=== PATIENT | female | born 1955 | race Caucasian/White ===

== ENCOUNTER → 2017-09-11 | Outpatient (CLI) | payer BC | LOC: M WUC 19:05 | DX: R05 Cough (principal); I51.7 Cardiomegaly ==

== ENCOUNTER → 2020-07-27 | Outpatient (CLI) | payer MEDICARE ==
--- NOTE | 2020-07-27 17:01 | REP ---
INDICATION: COPD WITH EXACERBATION. COMPARISON: Comparison chest x-ray September 11, 2017. TECHNIQUE: Two views.. FINDINGS: The lungs are hyperinflated but free of infiltrate. Pleural angles are sharp. The heart is moderately enlarged. Cardiothoracic ratio is 58.5% today. This is unchanged. Pulmonary vasculature is cephalized. There is no evidence of pleural effusion or pulmonary edema. No acute bony abnormality. IMPRESSION: Hyperinflation consistent with COPD. Moderate cardiomegaly. Cephalization of the pulmonary vasculature.. <Electronically signed by Abdulkadir Bonner > 07/27/20 [id number]
== END ==
LOC: M WUC 15:26
PROVIDERS: ATTEND Family Medicine
DX: J44.1 Chronic obstructive pulmonary disease with (acute) exacerbation (principal); I51.7 Cardiomegaly

== ENCOUNTER → 2020-10-27 | Outpatient (CLI) | payer MEDICARE ==
[2020-10-27 13:18] LABS: BLOOD UREA NITROGEN 13 MG/DL (7-18); CALCIUM LEVEL 9.2 MG/DL (8.8-10.2); CARBON DIOXIDE LEVEL 32 MEQ/L (21-32); CHLORIDE LEVEL 100 MEQ/L (98-107); CREATININE FOR GFR 0.61 MG/DL (0.55-1.30); GLOMERULAR FILTRATION RATE > 60.0 (>45); GLUCOSE, FASTING 77 MG/DL (70-100); POTASSIUM SERUM 5.3 MEQ/L (3.5-5.1); SODIUM LEVEL 136 MEQ/L (136-145)
== END ==
LOC: M WUC 09:17
PROVIDERS: ATTEND Nurse Practitioner Family
DX: E87.5 Hyperkalemia (principal)

== ENCOUNTER → 2021-02-01 | Outpatient (CLI) | payer MEDICARE ==
--- NOTE | 2021-02-06 13:11 | REP ---
INDICATION: ABNORMAL FINDING OF LUNG FIELD COMPARISON: Comparison with outside examination dated 10/09/2018 made available TECHNIQUE: Axial noncontrast images from the thoracic inlet to the upper abdomen with coronal and sagittal reformations. This CT examination was performed using the following dose reduction techniques: Automated exposure control, adjustment of mA and/or kv according to the patient's size, and use of iterative reconstruction technique. FINDINGS: The bilateral lung simmons are well aerated and the previously noted partial collapse/atelectasis involving the lingula and anterior left lower lobe have essentially resolved. Minimal residual chronic lingular fibroatelectatic changes are now noted. No acute consolidation, suspicious nodule or mass. No effusion. No pneumothorax. Tracheobronchial tree is patent. Mediastinum demonstrates cardiomegaly along with significant atherosclerotic changes to the thoracic aorta and coronary arteries similar to prior examination. No aortic aneurysm. Mildly prominent mediastinal lymph nodes are again identified and unchanged. Limited upper abdomen demonstrates small hiatal hernia at the gastroesophageal junction along with cholelithiasis and normal bilateral adrenal glands. IMPRESSION: 1. Mild chronic pulmonary parenchymal changes. Previously noted lingular and left lower lobe atelectasis have resolved. 2. Stable appearance to the mediastinal lymph nodes likely nonspecific and chronic. 3. No acute mediastinal or pleuroparenchymal process appreciated. 4. Nonacute findings as above. <Electronically signed by Casper Krishnan > 02/06/21 [id number]
== END ==
LOC: M PLAIMG 15:25
PROVIDERS: ATTEND Internal Medicine Pulmonary Disease
DX: R91.8 Other nonspecific abnormal finding of lung field (principal)

== ENCOUNTER 2022-09-11 16:05 | Inpatient (IN) | payer MEDICARE ==
[~2022-09-11] VITALS: Ht 152.4 cm; Wt 70.0 kg
[2022-09-11 17:14] LABS: HEMATOCRIT 52.2 % (36.0-47.0); HEMOGLOBIN 16.8 g/dl (12.0-15.5); MEAN CORPUSCULAR HEMOGLOBIN 29.9 pg (27.0-33.0); MEAN CORPUSCULAR HGB CONC 32.2 g/dl (32.0-36.5); MEAN CORPUSCULAR VOLUME 92.9 fl (80.0-96.0); PLATELET COUNT, AUTOMATED 339 10^3/uL (150-450); RED BLOOD COUNT 5.62 10^6/uL (4.00-5.40)
[2022-09-11 17:15] LABS: WHITE BLOOD COUNT 33.3 10^3/uL (4.0-10.0)
[2022-09-11 17:32] LABS: LIPASE 15 U/L (12-53)
[2022-09-11 17:34] LABS: ALBUMIN 2.5 G/DL (3.2-5.2); ALKALINE PHOSPHATASE 138 U/L (46-116); ALT/SGPT 17 U/L (7.0-40); AST/SGOT 25 U/L (<34); BILIRUBIN,DIRECT 0.2 MG/DL (<0.4); BILIRUBIN,TOTAL 0.4 MG/DL (0.3-1.2); BLOOD UREA NITROGEN 26 MG/DL (9-23); CALCIUM LEVEL 9.3 MG/DL (8.3-10.6); CARBON DIOXIDE LEVEL 34 MMOL/L (20-31); CHLORIDE LEVEL 94 MMOL/L (98-107); CREATININE FOR GFR 0.76 MG/DL (0.55-1.30); GLOMERULAR FILTRATION RATE > 60.0 (>45); GLUCOSE, FASTING 93 MG/DL (74-106); POTASSIUM SERUM 4.6 MMOL/L (3.5-5.1); SODIUM LEVEL 131 MMOL/L (136-145); TOTAL PROTEIN 5.7 G/DL (5.7-8.2)
[2022-09-11] MEDS ORDERED: CIPROFLOXACIN 400 MG in IV 1 EA IV ONE (18:35)
[2022-09-11] MEDS ORDERED: KETOROLAC 30 MG/ML 1ML VIAL IV ONE (18:35)
[2022-09-11] MEDS ORDERED: NS 1,880 ML in IV 1 EA IV ONE (18:35)
[2022-09-11] MEDS ORDERED: ONDANSETRON 4MG 2ML VIAL IV ONE (18:35)
[2022-09-11] MEDS ORDERED: metroNIDAZOLE 500 MG in IV 1 EA IV ONE (18:35)
[2022-09-11] MEDS ORDERED: ISOVUE-370 76% 100ML VIAL As Ordered ONE (18:50)
[2022-09-11 19:31] LABS: RSV AMPLIFICATION NEGATIVE (NEGATIVE)
[2022-09-11] MEDS ORDERED: PRAVASTATIN 10 MG TAB PO SCH (21:00)
[2022-09-11] MEDS ORDERED: CARVedilol 6.25 MG TAB PO SCH (21:00)
[2022-09-11 21:22] LABS: BASO # 0.2 10^3/uL (0.0-0.2); BASO % 0.6 % (0.0-1.0); EOS % 0.1 % (0.0-3.0); LYMPH # 1.7 10^3/uL (1.5-5.0); LYMPH % 5.1 % (24.0-44.0); MONO % 8.8 % (2.0-8.0); NEUTROPHILS # 27.8 10^3/uL (1.5-8.5); NEUTROPHILS % 84.2 % (36.0-66.0)
[2022-09-11 21:23] LABS: MONO # 2.9 10^3/uL (0.0-0.8)
[2022-09-11] MEDS ORDERED: LR 1,000 ML IV SCH (22:00)
[2022-09-11] MEDS ORDERED: NICO14DI6 TD (22:55)
[2022-09-11] MEDS ORDERED: FLUT22IN INH (22:55)
[2022-09-11] MEDS ORDERED: PRAV10TA4 PO (22:55)
[2022-09-11] MEDS ORDERED: PANT40TA29 PO (22:55)
[2022-09-11] MEDS ORDERED: CARV6.25 PO (23:00)
[2022-09-11] MEDS ORDERED: LEVA45AE INH (23:00)
[2022-09-11] MEDS ORDERED: ALPR0.25 PO (23:00)
[2022-09-11] MEDS ORDERED: HOME MED LIST COMPLETE! XX SCH (23:00)
[2022-09-11] MEDS ORDERED: TRAM50TA2 PO (23:00)
[2022-09-11] MEDS ORDERED: ACET650T61 PO (23:00)
[2022-09-11] MEDS ORDERED: TRIA1CR80 TOP (23:00)
[2022-09-11] MEDS ORDERED: FURO20TA2 PO (23:00)
[2022-09-11] MEDS ORDERED: MUCI600T31 PO (23:00)
[2022-09-11] MEDS ORDERED: ZYRT10TA12 PO (23:00)
[2022-09-11] MEDS ORDERED: STIO1AER INH (23:00)
[2022-09-11] MEDS ORDERED: VITMTA PO (23:00)
[2022-09-11] MEDS ORDERED: LEXA1TAB PO (23:00)
[2022-09-11] MEDS ORDERED: traMADol 50 MG TAB PO PRN (23:15)
[2022-09-11] MEDS ORDERED: CETIRIZINE (ZyrTEC) 10 MG TAB PO PRN (23:15)
[2022-09-11] MEDS ORDERED: ACETAMINOPHEN 650MG ER TAB (TYLENOL ARTHRITIS) PO PRN (23:15)
[2022-09-11] MEDS ORDERED: guaiFENesin ER 600 MG TAB PO PRN (23:15)
[2022-09-12] MEDS ORDERED: ACETAMINOPHEN 650MG SUPP PR ONE (00:30)
[2022-09-12] MEDS ORDERED: HYDROMORPHONE HCL 0.5 MG/ 0.5 ML SYRINGE IV PRN (00:45)
[2022-09-12] MEDS ORDERED: ALBUTEROL SULFATE 2.5MG/0.5ML INH NEB SOLN NEB PRN (01:20)
[2022-09-12 02:00] VITALS: BP 112/64
[2022-09-12] MEDS: COMBIVENT RESPIMAT 100-20MCG INHALER 4GM INH SCH ×4 (02:00→20:00)
[2022-09-12 04:00] VITALS: BP 92/52
[2022-09-12 05:39] LABS: BASO # 0.1 10^3/uL (0.0-0.2); BASO % 0.3 % (0.0-1.0); EOS # 0.1 10^3/uL (0.0-0.5); EOS % 0.2 % (0.0-3.0); HEMATOCRIT 43.5 % (36.0-47.0); LYMPH # 1.9 10^3/uL (1.5-5.0); LYMPH % 7.2 % (24.0-44.0); MEAN CORPUSCULAR HEMOGLOBIN 30.1 pg (27.0-33.0); MEAN CORPUSCULAR HGB CONC 32.2 g/dl (32.0-36.5); MEAN CORPUSCULAR VOLUME 93.5 fl (80.0-96.0); MONO % 11.5 % (2.0-8.0); NEUTROPHILS # 21.5 10^3/uL (1.5-8.5); NEUTROPHILS % 79.8 % (36.0-66.0); PLATELET COUNT, AUTOMATED 274 10^3/uL (150-450); RED BLOOD COUNT 4.65 10^6/uL (4.00-5.40); WHITE BLOOD COUNT 26.9 10^3/uL (4.0-10.0)
[2022-09-12 06:07] LABS: URIC ACID 6.9 MG/DL (3.1-7.8)
[2022-09-12 06:10] LABS: BLOOD UREA NITROGEN 25 MG/DL (9-23); CALCIUM LEVEL 8.2 MG/DL (8.3-10.6); CARBON DIOXIDE LEVEL 31 MMOL/L (20-31); CHLORIDE LEVEL 97 MMOL/L (98-107); CREATININE FOR GFR 0.66 MG/DL (0.55-1.30); GLOMERULAR FILTRATION RATE > 60.0 (>45); GLUCOSE, FASTING 69 MG/DL (74-106); MAGNESIUM LEVEL 1.5 MG/DL (1.8-2.4); POTASSIUM SERUM 4.1 MMOL/L (3.5-5.1); SODIUM LEVEL 134 MMOL/L (136-145)
[2022-09-12 06:33] LABS: MONO # 3.1 10^3/uL (0.0-0.8)
[2022-09-12] MEDS: SUCRALFATE SUSP 1GM/10ML UD PO SCH ×4 (07:30→20:45)
[2022-09-12] MEDS ORDERED: NS 1,000 ML IV ONE (08:00)
[2022-09-12] MEDS ORDERED: MAG SULF 1GM/100ML (MAG RUN) 1 GM in IV 1 EA IV ONE (08:00)
[2022-09-12] MEDS: FLUTICASONE HFA 220 MCG 12 GM INHALER (FLOVENT) INH SCH ×3 (08:00→20:19)
[2022-09-12 08:14] VITALS: BP 112/76
[2022-09-12] MEDS ORDERED: FUROSEMIDE 20 MG TAB PO SCH (09:00)
[2022-09-12] MEDS ORDERED: MULTIVITAMINS/MINERALS THERAP 1 TAB PO SCH (09:00)
[2022-09-12] MEDS ORDERED: PANTOPRAZOLE 40MG TAB (PROTONIX) PO SCH (09:00)
[2022-09-12] MEDS ORDERED: metroNIDAZOLE 500 MG in IV 1 EA IV SCH (09:00)
[2022-09-12] MEDS ORDERED: ESCITALOPRAM OXALATE 10 MG TAB (LEXAPRO) PO SCH (09:00)
[2022-09-12] MEDS ORDERED: ENOXAPARIN 40MG/0.4ML SYRINGE (J1650 PER 10MG) SC SCH (09:00)
[2022-09-12] MEDS: PANTOPRAZOLE 40MG VIAL IV SCH ×2 (09:06→20:46)
[2022-09-12] MEDS: NICOTINE 14 MG/24 HR TRANSDERMAL TD SCH (09:07)
[2022-09-12 11:24] VITALS: BP 98/58
[2022-09-12] MEDS: CIPROFLOXACIN 400 MG in IV 1 EA IV SCH ×2 (12:05→20:45)
[2022-09-12 15:45] VITALS: BP 108/62
[2022-09-12] MEDS: LEVALBUTEROL HFA 45MCG/ACT 15GM INHALER INH PRN ×2 (17:36→23:17)
[2022-09-12 20:44] VITALS: BP 138/63
[2022-09-12] MEDS: metroNIDAZOLE 500 MG in IV 1 EA IV SCH (22:36)
[2022-09-13 00:07] VITALS: BP 142/66
[2022-09-13] MEDS: COMBIVENT RESPIMAT 100-20MCG INHALER 4GM INH SCH ×2 (01:22→07:56)
[2022-09-13 04:39] VITALS: BP 169/79
[2022-09-13] MEDS: metroNIDAZOLE 500 MG in IV 1 EA IV SCH (06:11)
[2022-09-13] MEDS: SUCRALFATE SUSP 1GM/10ML UD PO SCH ×2 (07:30→11:49)
[2022-09-13] MEDS ORDERED: CIPR-249 PO (07:48)
[2022-09-13] MEDS ORDERED: METR-265 PO (07:48)
[2022-09-13] MEDS: LEVALBUTEROL HFA 45MCG/ACT 15GM INHALER INH PRN (07:56)
[2022-09-13] MEDS: FLUTICASONE HFA 220 MCG 12 GM INHALER (FLOVENT) INH SCH (07:56)
[2022-09-13] MEDS ORDERED: ESCITALOPRAM OXALATE 10 MG TAB (LEXAPRO) PO ONE (08:00)
[2022-09-13] MEDS ORDERED: IPRATROPIUM 0.5MG/ALBUTEROL 2.5MG INH SOL UD 3ML (DUONEB) NEB ONE (08:05)
[2022-09-13 08:11] LABS: BASO # 0.1 10^3/uL (0.0-0.2); BASO % 0.3 % (0.0-1.0); EOS # 0.1 10^3/uL (0.0-0.5); EOS % 0.6 % (0.0-3.0); HEMATOCRIT 40.7 % (36.0-47.0); HEMOGLOBIN 13.3 g/dl (12.0-15.5); LYMPH # 1.5 10^3/uL (1.5-5.0); LYMPH % 7.1 % (24.0-44.0); MEAN CORPUSCULAR HEMOGLOBIN 30.3 pg (27.0-33.0); MEAN CORPUSCULAR HGB CONC 32.7 g/dl (32.0-36.5); MEAN CORPUSCULAR VOLUME 92.7 fl (80.0-96.0); MONO % 9.4 % (2.0-8.0); NEUTROPHILS # 16.9 10^3/uL (1.5-8.5); NEUTROPHILS % 81.4 % (36.0-66.0); PLATELET COUNT, AUTOMATED 282 10^3/uL (150-450); RED BLOOD COUNT 4.39 10^6/uL (4.00-5.40); WHITE BLOOD COUNT 20.7 10^3/uL (4.0-10.0)
[2022-09-13 08:34] VITALS: BP 158/68
[2022-09-13 08:44] LABS: ALBUMIN 2.2 G/DL (3.2-5.2); ALKALINE PHOSPHATASE 104 U/L (46-116); ALT/SGPT 13 U/L (7.0-40); AST/SGOT 17 U/L (<34); BILIRUBIN,TOTAL 0.3 MG/DL (0.3-1.2); BLOOD UREA NITROGEN 11 MG/DL (9-23); CALCIUM LEVEL 7.8 MG/DL (8.3-10.6); CARBON DIOXIDE LEVEL 32 MMOL/L (20-31); CHLORIDE LEVEL 98 MMOL/L (98-107); CREATININE FOR GFR 0.55 MG/DL (0.55-1.30); GLOMERULAR FILTRATION RATE > 60.0 (>45); GLUCOSE, FASTING 73 MG/DL (74-106); MAGNESIUM LEVEL 1.7 MG/DL (1.8-2.4); POTASSIUM SERUM 3.7 MMOL/L (3.5-5.1); SODIUM LEVEL 136 MMOL/L (136-145); TOTAL PROTEIN 4.6 G/DL (5.7-8.2)
[2022-09-13] MEDS: NICOTINE 14 MG/24 HR TRANSDERMAL TD SCH (09:00)
[2022-09-13] MEDS ORDERED: CARVedilol 6.25 MG TAB PO SCH (09:00)
[2022-09-13 09:16] VITALS: BP 158/68
[2022-09-13] MEDS: CIPROFLOXACIN 400 MG in IV 1 EA IV SCH (09:16)
[2022-09-13] MEDS: PANTOPRAZOLE 40MG VIAL IV SCH (09:16)
[2022-09-13 09:21] LABS: MONO # 1.9 10^3/uL (0.0-0.8)
[2022-09-13] MEDS ORDERED: MAG SULF 1GM/100ML (MAG RUN) 1 GM in IV 1 EA IV ONE (09:30)
[2022-09-13] MEDS ORDERED: MAGNESIUM OXIDE 400MG TAB (MAG-OX) PO ONE (12:00)
== END 2022-09-13 13:05 | disposition home or self-care (01) | DRG 392 ==
LOC: M ED 16:05 → M ED INP 23:11 → ENRESERV 09-12 01:18 → M PCU 09-12 01:48
PROVIDERS: ADMIT Internal Medicine; ATTEND General Practice
DX: A09 Infectious gastroenteritis and colitis, unspecified (principal); E87.1 Hypo-osmolality and hyponatremia; K92.0 Hematemesis; I50.1 Left ventricular failure, unspecified; J44.9 Chronic obstructive pulmonary disease, unspecified; I73.9 Peripheral vascular disease, unspecified; I71.43 Infrarenal abdominal aortic aneurysm, without rupture; E78.00 Pure hypercholesterolemia, unspecified; K21.9 Gastro-esophageal reflux disease without esophagitis; E78.5 Hyperlipidemia, unspecified; I25.10 Atherosclerotic heart disease of native coronary artery without angina pectoris; F17.210 Nicotine dependence, cigarettes, uncomplicated; R74.8 Abnormal levels of other serum enzymes; D75.1 Secondary polycythemia; R31.9 Hematuria, unspecified; K80.20 Calculus of gallbladder without cholecystitis without obstruction; K44.9 Diaphragmatic hernia without obstruction or gangrene; F41.9 Anxiety disorder, unspecified; F32.A Depression, unspecified; I25.2 Old myocardial infarction; Z88.2 Allergy status to sulfonamides; Z88.0 Allergy status to penicillin; Z88.5 Allergy status to narcotic agent; Z79.899 Other long term (current) drug therapy; I11.0 Hypertensive heart disease with heart failure; M19.90 Unspecified osteoarthritis, unspecified site

== ENCOUNTER → 2022-10-18 | Outpatient (CLI) | payer MEDICARE ==
[~2022-10-18] MED LIST: ACET650T61 PO; ALPR0.25 PO; CARV6.25 PO; CIPR-249 PO; FLUT22IN INH; FURO20TA2 PO; LEVA45AE INH; LEXA1TAB PO; METR-265 PO; MUCI600T31 PO; NICO14DI6 TD; PANT40TA29 PO; PRAV10TA4 PO; STIO1AER INH; TRAM50TA2 PO; TRIA1CR80 TOP; VITMTA PO; ZYRT10TA12 PO
== END ==
LOC: M PLARAD 09:00
PROVIDERS: ATTEND Surgery
DX: D37.6 Neoplasm of uncertain behavior of liver, gallbladder and bile ducts (principal)

== ENCOUNTER 2022-11-13 10:16 | Day surgery (SDC) | payer MEDICARE ==
[~2022-11-13] VITALS: Ht 152.4 cm; Wt 58.8 kg
[2022-11-13] MEDS ORDERED: MORPHINE 4 MG/ML 1ML VIAL IV ONE (12:05)
[2022-11-13] MEDS ORDERED: ONDANSETRON 4MG 2ML VIAL IV ONE (12:05)
[2022-11-13] MEDS ORDERED: NS 1,000 ML IV SCH (14:25)
[2022-11-13] MEDS ORDERED: propofoL 200 MG/20 ML VIAL As Ordered ONE ×2 (14:25→21:17)
[2022-11-13] MEDS: propofoL 200 MG/20 ML VIAL IV.PROC PRN ×3 (14:41→20:55)
[2022-11-13] MEDS: fentaNYL 100 MCG/2 ML INJECTION IV PRN ×4 (14:58→20:05)
[2022-11-13] MEDS ORDERED: MIDAZOLAM INJ 2MG/2ML VIAL As Ordered ONE (21:17)
[2022-11-13] MEDS ORDERED: fentaNYL 100 MCG/2 ML INJECTION As Ordered ONE (21:17)
[2022-11-13] MEDS ORDERED: LIDOCAINE 2% 100MG/5ML SDV (FOR ANES.) As Ordered ONE (21:17)
[2022-11-13] MEDS ORDERED: PHENYLephrine 500MCG 5ML (100MCG/ML) SYRINGE As Ordered ONE (21:51)
[2022-11-13 21:57] LABS: RSV AMPLIFICATION NEGATIVE (NEGATIVE)
[2022-11-13] MEDS ORDERED: ONDANSETRON 4MG 2ML VIAL IV PRN (22:10)
[2022-11-13] MEDS ORDERED: oxyCODONE 5MG TAB PO PRN (22:10)
[2022-11-13] MEDS ORDERED: fentaNYL 100 MCG/2 ML INJECTION IV PRN (22:10)
[2022-11-13 22:35] VITALS: BP 127/62; TEMP 96.8; O2SAT 94
== END 2022-11-13 22:50 | disposition home or self-care (01) ==
LOC: M ED 10:16 → M SDC 10:17
PROVIDERS: ATTEND Orthopaedic Surgery
DX: S43.085A Other dislocation of left shoulder joint, initial encounter (principal); W19.XXXA Unspecified fall, initial encounter; Y92.89 Other specified places as the place of occurrence of the external cause; Y93.9 Activity, unspecified; Y99.9 Unspecified external cause status; J44.9 Chronic obstructive pulmonary disease, unspecified; F17.210 Nicotine dependence, cigarettes, uncomplicated; I50.9 Heart failure, unspecified; I25.2 Old myocardial infarction; I25.10 Atherosclerotic heart disease of native coronary artery without angina pectoris; Z88.2 Allergy status to sulfonamides; Z88.0 Allergy status to penicillin; Z88.5 Allergy status to narcotic agent
CPT/HCPCS: 23650; 23655; 71045; 73020; 73030; 87631; 93005; 93041; 94760; 96361; 96374; 96375; 96376; 99285; J2250; J2371; J2405; J3010

== ENCOUNTER → 2023-01-01 | Outpatient (CLI) | payer MEDICARE | LOC: M PLAIMG 14:36 | PROVIDERS: ATTEND Physician Assistant | DX: M21.372 Foot drop, left foot (principal) ==

== ENCOUNTER → 2023-02-17 | Outpatient (CLI) | payer MEDICARE ==
[~2023-02-17] MED LIST changes: +LEXA1TAB; +OMEP40CA5
== END ==
LOC: M RAD 09:41
PROVIDERS: ATTEND Surgery Vascular Surgery
DX: I71.40 Abdominal aortic aneurysm, without rupture, unspecified (principal); I65.23 Occlusion and stenosis of bilateral carotid arteries

== ENCOUNTER 2023-03-05 22:46 | Inpatient (IN) | payer MEDICARE ==
[~2023-03-05] VITALS: Ht 152.4 cm; Wt 53.6 kg
[2023-03-05 23:11] LABS: ABG BASE EXCESS 1.5 (-2.0-2.0); ABG HCO3 34.6 MMOL/L (22.0-26.0); ABG PARTIAL PRESSURE O2 216.2 mmHg (75.0-100.0); ABG STANDARD HCO3 25.9 MMOL/L. (22.0-26.0); ABG TOTAL CO2 37.8 MMOL/L (23.0-31.0)
[2023-03-05 23:14] LABS: ABG PARTIAL PRESSURE CO2 103.4 mmHg (35.0-45.0); ABG pH (ARTERIAL) 7.143 UNITS (7.350-7.450)
[2023-03-05 23:20] LABS: BASO # 0.1 10^3/uL (0.0-0.2); BASO % 0.6 % (0.0-1.0); EOS % 0.1 % (0.0-3.0); HEMATOCRIT 54.2 % (36.0-47.0); HEMOGLOBIN 16.2 g/dl (12.0-15.5); LYMPH # 2.7 10^3/uL (1.5-5.0); LYMPH % 18.4 % (24.0-44.0); MEAN CORPUSCULAR HEMOGLOBIN 28.9 pg (27.0-33.0); MEAN CORPUSCULAR HGB CONC 29.9 g/dl (32.0-36.5); MEAN CORPUSCULAR VOLUME 96.6 fl (80.0-96.0); MONO # 1.5 10^3/uL (0.0-0.8); MONO % 10.6 % (2.0-8.0); NEUTROPHILS # 9.8 10^3/uL (1.5-8.5); NEUTROPHILS % 67.4 % (36.0-66.0); PLATELET COUNT, AUTOMATED 263 10^3/uL (150-450); RED BLOOD COUNT 5.61 10^6/uL (4.00-5.40); WHITE BLOOD COUNT 14.5 10^3/uL (4.0-10.0)
[2023-03-05] MEDS ORDERED: NS 1,000 ML IV ONE (23:30)
[2023-03-05 23:40] LABS: ALBUMIN 3.5 G/DL (3.2-5.2); ALKALINE PHOSPHATASE 142 U/L (46-116); ALT/SGPT 48 U/L (7.0-40); AST/SGOT 43 U/L (<34); BILIRUBIN,DIRECT 0.2 MG/DL (<0.4); BILIRUBIN,TOTAL 0.5 MG/DL (0.3-1.2); BLOOD UREA NITROGEN 21 MG/DL (9-23); CALCIUM LEVEL 9.3 MG/DL (8.3-10.6); CARBON DIOXIDE LEVEL 38 MMOL/L (20-31); CHLORIDE LEVEL 96 MMOL/L (98-107); CPK CREATINE PHOSPHOKINASE 28 U/L (34-145); CREATININE FOR GFR 0.68 MG/DL (0.55-1.30); GLOMERULAR FILTRATION RATE > 60.0 (>39); GLUCOSE, FASTING 116 MG/DL (74-106); MB/CK RELATIVE INDEX 10.71 (< OR =4); POTASSIUM SERUM 5.9 MMOL/L (3.5-5.1); SODIUM LEVEL 136 MMOL/L (136-145); TOTAL PROTEIN 6.8 G/DL (5.7-8.2)
[2023-03-05] MEDS ORDERED: ISOVUE-370 76% 100ML VIAL As Ordered ONE (23:50)
[2023-03-06] VITALS (27 sets, daily range): BP systolic 70–149; BP diastolic 46–94; TEMP 98–99.4; O2SAT 91–99
[2023-03-06 00:34] LABS: ABG BASE EXCESS -0.1 (-2.0-2.0); ABG HCO3 31.1 MMOL/L (22.0-26.0); ABG O2 SATURATION 98.1 % (95.0-99.0); ABG PARTIAL PRESSURE O2 127.7 mmHg (75.0-100.0); ABG STANDARD HCO3 24.4 MMOL/L. (22.0-26.0); ABG TOTAL CO2 33.7 MMOL/L (23.0-31.0)
[2023-03-06 00:38] LABS: ABG PARTIAL PRESSURE CO2 85.1 mmHg (35.0-45.0)
[2023-03-06 00:56] LABS: CK-MB VALUE MASS 2.6 NG/ML (<3.6); MB/CK RELATIVE INDEX 7.02 (< OR =4)
[2023-03-06] MEDS ORDERED: cefTRIAXone SOD 2 GM in D5W MINI-BAG PLUS 50 ML IV ONE (03:00)
[2023-03-06] MEDS ORDERED: OMEP40CA4 PO (04:04)
[2023-03-06] MEDS ORDERED: LEXA1TAB PO (04:04)
[2023-03-06] MEDS ORDERED: CIPR0.3S37 OS (04:08)
[2023-03-06] MEDS ORDERED: HOME MED LIST COMPLETE! XX SCH (04:10)
[2023-03-06] MEDS ORDERED: CETIRIZINE (ZyrTEC) 10 MG TAB PO PRN (04:45)
[2023-03-06 04:53] LABS: PROCALCITONIN <0.04 ng/ml
[2023-03-06] MEDS ORDERED: IPRATROPIUM HFA INHALER 12.9 GRAMS (ATROVENT HFA) INH PRN (05:00)
[2023-03-06 05:32] LABS: BASO % 0.3 % (0.0-1.0); HEMATOCRIT 50.3 % (36.0-47.0); LYMPH # 0.6 10^3/uL (1.5-5.0); LYMPH % 5.3 % (24.0-44.0); MEAN CORPUSCULAR HEMOGLOBIN 28.9 pg (27.0-33.0); MEAN CORPUSCULAR HGB CONC 29.8 g/dl (32.0-36.5); MEAN CORPUSCULAR VOLUME 96.9 fl (80.0-96.0); MONO # 0.2 10^3/uL (0.0-0.8); MONO % 1.3 % (2.0-8.0); NEUTROPHILS % 90.9 % (36.0-66.0); PLATELET COUNT, AUTOMATED 255 10^3/uL (150-450); RED BLOOD COUNT 5.19 10^6/uL (4.00-5.40); WHITE BLOOD COUNT 12.1 10^3/uL (4.0-10.0)
[2023-03-06] MEDS: DOXYCYCLINE HYCLATE 100 MG in D5W MINI-BAG PLUS 100 ML IV SCH ×2 (05:39→16:04)
[2023-03-06] MEDS: HEPARIN SOD (PORCINE) 5000UNITS/ML 1ML VIAL/SYRINGE SC SCH ×3 (05:40→21:33)
[2023-03-06 05:46] LABS: ABG BASE EXCESS 3.9 (-2.0-2.0); ABG HCO3 33.7 MMOL/L (22.0-26.0); ABG O2 SATURATION 97.6 % (95.0-99.0); ABG PARTIAL PRESSURE O2 98.4 mmHg (75.0-100.0); ABG pH (ARTERIAL) 7.268 UNITS (7.350-7.450)
[2023-03-06 05:47] LABS: ABG PARTIAL PRESSURE CO2 75.4 mmHg (35.0-45.0)
[2023-03-06 06:09] LABS: ALBUMIN 2.9 G/DL (3.2-5.2); ALKALINE PHOSPHATASE 124 U/L (46-116); ALT/SGPT 41 U/L (7.0-40); AST/SGOT 37 U/L (<34); BILIRUBIN,TOTAL 0.3 MG/DL (0.3-1.2); BLOOD UREA NITROGEN 20 MG/DL (9-23); CALCIUM LEVEL 8.9 MG/DL (8.3-10.6); CARBON DIOXIDE LEVEL 35 MMOL/L (20-31); CHLORIDE LEVEL 97 MMOL/L (98-107); CK-MB VALUE MASS 2.1 NG/ML (<3.6); CPK CREATINE PHOSPHOKINASE 34 U/L (34-145); CREATININE FOR GFR 0.59 MG/DL (0.55-1.30); GLOMERULAR FILTRATION RATE > 60.0 (>39); GLUCOSE, FASTING 101 MG/DL (74-106); MB/CK RELATIVE INDEX 6.17 (< OR =4); POTASSIUM SERUM 5.3 MMOL/L (3.5-5.1); SODIUM LEVEL 136 MMOL/L (136-145); TOTAL PROTEIN 5.7 G/DL (5.7-8.2)
[2023-03-06] MEDS: LEVALBUTEROL 1.25MG 0.5ML CONCENTRATE NEB NEB PRN ×2 (07:56→19:54)
[2023-03-06] MEDS: FLUTICASONE HFA 220 MCG 12 GM INHALER (FLOVENT) INH SCH ×2 (07:57→19:54)
[2023-03-06 08:57] LABS: VENOUS BASE EXCESS -0.6 (-2.0-2.0); VENOUS HCO3 29.9 MMOL/L (23.0-27.0); VENOUS O2 SATURATION 80.2 % (60.0-80.0); VENOUS PARTIAL PRESSURE CO2 77.7 mmHg (38.0-50.0); VENOUS PH 7.203 UNITS (7.330-7.430); VENOUS STANDARD HCO3 23.5 MMOL/L; VENOUS TOTAL CO2 32.3 MMOL/L (24.0-28.0)
[2023-03-06] MEDS ORDERED: OMEPRAZOLE 20MG CAP PO SCH (09:00)
[2023-03-06] MEDS: CARVedilol 6.25 MG TAB PO SCH ×2 (09:00→21:00)
[2023-03-06] MEDS: FUROSEMIDE 20 MG TAB PO SCH (09:00)
[2023-03-06] MEDS: ESCITALOPRAM OXALATE 10 MG TAB (LEXAPRO) PO SCH (09:00)
[2023-03-06] MEDS ORDERED: FAMOTIDINE 20 MG TAB PO SCH (09:00)
[2023-03-06] MEDS: PANTOPRAZOLE 40MG VIAL IV SCH (10:38)
[2023-03-06] MEDS: CIPROFLOXACIN 0.3% OPHTH SOLN 2.5ML OS SCH ×4 (10:38→21:33)
[2023-03-06] MEDS: methylPREDNISolone 125MG 2ML VIAL IV SCH ×2 (11:15→23:41)
[2023-03-06 11:45] LABS: VENOUS BASE EXCESS 4.1 (-2.0-2.0); VENOUS HCO3 31.9 MMOL/L (23.0-27.0); VENOUS O2 SATURATION 99.2 % (60.0-80.0); VENOUS PARTIAL PRESSURE O2 265.6 mmHg (30.0-50.0); VENOUS PH 7.337 UNITS (7.330-7.430); VENOUS STANDARD HCO3 28.2 MMOL/L; VENOUS TOTAL CO2 33.8 MMOL/L (24.0-28.0)
[2023-03-06] MEDS ORDERED: CARVedilol 6.25 MG TAB PO ONE (11:50)
[2023-03-06] MEDS: NICOTINE 21MG/24HR 1 EA TRANSDERMAL TD SCH (16:04)
[2023-03-06 16:51] LABS: BLOOD UREA NITROGEN 22 MG/DL (9-23); CALCIUM LEVEL 9.2 MG/DL (8.3-10.6); CARBON DIOXIDE LEVEL 36 MMOL/L (20-31); CHLORIDE LEVEL 98 MMOL/L (98-107); CREATININE FOR GFR 0.56 MG/DL (0.55-1.30); GLOMERULAR FILTRATION RATE > 60.0 (>39); GLUCOSE, FASTING 98 MG/DL (74-106); POTASSIUM SERUM 5.6 MMOL/L (3.5-5.1); SODIUM LEVEL 138 MMOL/L (136-145)
[2023-03-06] MEDS ORDERED: DEXTROSE 50% 50ML SYRINGE IV STA (17:00)
[2023-03-06] MEDS ORDERED: SOD POLYSTYRENE SULFONATE SUSP 15GM 60ML UD PO ONE (17:00)
[2023-03-06] MEDS ORDERED: CALCIUM GLUCONATE 1,000 MG in D5W MINI-BAG PLUS 100 ML IV ONE (17:00)
[2023-03-06] MEDS ORDERED: HumuLIN R (REGULAR) INSULIN (NovoLIN R) **100U/ML** PER UNIT IV STA (17:00)
[2023-03-06] MEDS ORDERED: FUROSEMIDE 40MG/4ML VIAL IV ONE (17:00)
[2023-03-06 20:24] LABS: VENOUS BASE EXCESS 6.3 (-2.0-2.0); VENOUS HCO3 36.9 MMOL/L (23.0-27.0); VENOUS O2 SATURATION 99.1 % (60.0-80.0); VENOUS PARTIAL PRESSURE CO2 83.6 mmHg (38.0-50.0); VENOUS PARTIAL PRESSURE O2 220.4 mmHg (30.0-50.0); VENOUS PH 7.263 UNITS (7.330-7.430); VENOUS STANDARD HCO3 30.3 MMOL/L; VENOUS TOTAL CO2 39.5 MMOL/L (24.0-28.0)
[2023-03-06 20:58] LABS: BLOOD UREA NITROGEN 22 MG/DL (9-23); CALCIUM LEVEL 9.3 MG/DL (8.3-10.6); CARBON DIOXIDE LEVEL 38 MMOL/L (20-31); CHLORIDE LEVEL 98 MMOL/L (98-107); GLOMERULAR FILTRATION RATE > 60.0 (>39); GLUCOSE, FASTING 127 MG/DL (74-106); POTASSIUM SERUM 4.9 MMOL/L (3.5-5.1); SODIUM LEVEL 139 MMOL/L (136-145)
[2023-03-06] MEDS ORDERED: ALPRAZolam 0.25 MG TAB PO SCH (21:00)
[2023-03-06] MEDS: PRAVASTATIN 10 MG TAB PO SCH (21:00)
[2023-03-06 23:09] LABS: VENOUS BASE EXCESS 7.1 (-2.0-2.0); VENOUS HCO3 29.9 MMOL/L (23.0-27.0); VENOUS O2 SATURATION 99.2 % (60.0-80.0); VENOUS PARTIAL PRESSURE CO2 36.4 mmHg (38.0-50.0); VENOUS PARTIAL PRESSURE O2 243.4 mmHg (30.0-50.0); VENOUS PH 7.533 UNITS (7.330-7.430); VENOUS TOTAL CO2 31.1 MMOL/L (24.0-28.0)
[2023-03-07] VITALS (38 sets, daily range): BP systolic 79–152; BP diastolic 53–90; TEMP 98.3–99.1; O2SAT 88–99
[2023-03-07 01:21] LABS: VENOUS HCO3 33.9 MMOL/L (23.0-27.0); VENOUS O2 SATURATION 98.1 % (60.0-80.0); VENOUS PARTIAL PRESSURE CO2 69.6 mmHg (38.0-50.0); VENOUS PARTIAL PRESSURE O2 123.6 mmHg (30.0-50.0); VENOUS PH 7.305 UNITS (7.330-7.430); VENOUS STANDARD HCO3 28.9 MMOL/L
[2023-03-07] MEDS ORDERED: cefTRIAXone SOD 1 GM in D5W MINI-BAG PLUS 50 ML IV SCH (03:00)
[2023-03-07] MEDS: DOXYCYCLINE HYCLATE 100 MG in D5W MINI-BAG PLUS 100 ML IV SCH (04:27)
[2023-03-07 05:33] LABS: BASO % 0.1 % (0.0-1.0); HEMATOCRIT 44.5 % (36.0-47.0); HEMOGLOBIN 13.7 g/dl (12.0-15.5); LYMPH # 0.6 10^3/uL (1.5-5.0); LYMPH % 5.6 % (24.0-44.0); MEAN CORPUSCULAR HEMOGLOBIN 28.5 pg (27.0-33.0); MEAN CORPUSCULAR HGB CONC 30.8 g/dl (32.0-36.5); MEAN CORPUSCULAR VOLUME 92.5 fl (80.0-96.0); MONO # 0.4 10^3/uL (0.0-0.8); MONO % 3.1 % (2.0-8.0); NEUTROPHILS # 10.4 10^3/uL (1.5-8.5); NEUTROPHILS % 90.8 % (36.0-66.0); PLATELET COUNT, AUTOMATED 242 10^3/uL (150-450); RED BLOOD COUNT 4.81 10^6/uL (4.00-5.40); WHITE BLOOD COUNT 11.5 10^3/uL (4.0-10.0)
[2023-03-07 06:02] LABS: ALBUMIN 2.8 G/DL (3.2-5.2); ALKALINE PHOSPHATASE 98 U/L (46-116); ALT/SGPT 37 U/L (7.0-40); AST/SGOT 30 U/L (<34); BILIRUBIN,TOTAL 0.4 MG/DL (0.3-1.2); BLOOD UREA NITROGEN 25 MG/DL (9-23); CALCIUM LEVEL 9.3 MG/DL (8.3-10.6); CARBON DIOXIDE LEVEL > 40.0 MMOL/L (20-31); CHLORIDE LEVEL 96 MMOL/L (98-107); CREATININE FOR GFR 0.58 MG/DL (0.55-1.30); GLOMERULAR FILTRATION RATE > 60.0 (>39); GLUCOSE, FASTING 102 MG/DL (74-106); MAGNESIUM LEVEL 1.6 MG/DL (1.8-2.4); POTASSIUM SERUM 4.9 MMOL/L (3.5-5.1); SODIUM LEVEL 139 MMOL/L (136-145); TOTAL PROTEIN 5.4 G/DL (5.7-8.2)
[2023-03-07] MEDS: HEPARIN SOD (PORCINE) 5000UNITS/ML 1ML VIAL/SYRINGE SC SCH ×3 (06:33→21:09)
[2023-03-07] MEDS: FLUTICASONE HFA 220 MCG 12 GM INHALER (FLOVENT) INH SCH ×3 (08:17→20:00)
[2023-03-07] MEDS: CARVedilol 6.25 MG TAB PO SCH ×3 (08:53→20:18)
[2023-03-07] MEDS: ESCITALOPRAM OXALATE 10 MG TAB (LEXAPRO) PO SCH ×2 (08:53→09:00)
[2023-03-07] MEDS: PANTOPRAZOLE 40MG VIAL IV SCH (08:53)
[2023-03-07] MEDS: NICOTINE 21MG/24HR 1 EA TRANSDERMAL TD SCH (08:53)
[2023-03-07] MEDS: FUROSEMIDE 20 MG TAB PO SCH ×2 (08:54→09:00)
[2023-03-07] MEDS: CIPROFLOXACIN 0.3% OPHTH SOLN 2.5ML OS SCH ×4 (08:54→21:09)
[2023-03-07] MEDS ORDERED: predniSONE 20 MG TAB PO SCH (09:00)
[2023-03-07] MEDS ORDERED: AZITHROMYCIN 250MG TABLET PO ONE (09:40)
[2023-03-07 09:59] LABS: VENOUS HCO3 38.5 MMOL/L (23.0-27.0); VENOUS O2 SATURATION 99.1 % (60.0-80.0); VENOUS PARTIAL PRESSURE O2 251.2 mmHg (30.0-50.0); VENOUS PH 7.322 UNITS (7.330-7.430); VENOUS STANDARD HCO3 32.9 MMOL/L; VENOUS TOTAL CO2 40.8 MMOL/L (24.0-28.0)
[2023-03-07] MEDS ORDERED: MAG SULF 1GM/100ML (MAG RUN) 1 GM in IV 1 EA IV SCH (10:00)
[2023-03-07] MEDS: methylPREDNISolone 125MG 2ML VIAL IV SCH ×2 (12:20→21:09)
[2023-03-07] MEDS ORDERED: AZITHROMYCIN INJ 500 MG, VIAL MATE ADAPTER 1 EACH in NS 250 ML IV ONE (13:00)
[2023-03-07] MEDS: IPRATROPIUM 0.5MG/ALBUTEROL 2.5MG INH SOL UD 3ML (DUONEB) NEB SCH ×2 (13:37→18:52)
[2023-03-07] MEDS: ALPRAZolam 0.25 MG TAB PO PRN (15:07)
[2023-03-07] MEDS ORDERED: LORazepam 2 MG/ML 1ML VIAL IV PRN (15:20)
[2023-03-07] MEDS: PRAVASTATIN 10 MG TAB PO SCH (20:18)
[2023-03-08] VITALS (24 sets, daily range): BP systolic 100–166; BP diastolic 62–99; TEMP 97.3–98.4; O2SAT 88–100
[2023-03-08] MEDS: IPRATROPIUM 0.5MG/ALBUTEROL 2.5MG INH SOL UD 3ML (DUONEB) NEB SCH ×4 (01:07→20:03)
[2023-03-08 04:44] LABS: VENOUS BASE EXCESS 5.8 (-2.0-2.0); VENOUS HCO3 36.6 MMOL/L (23.0-27.0); VENOUS O2 SATURATION 98.5 % (60.0-80.0); VENOUS PARTIAL PRESSURE CO2 85.4 mmHg (38.0-50.0); VENOUS PARTIAL PRESSURE O2 153.6 mmHg (30.0-50.0); VENOUS STANDARD HCO3 29.8 MMOL/L; VENOUS TOTAL CO2 39.2 MMOL/L (24.0-28.0)
[2023-03-08 04:47] LABS: EOS % 0.1 % (0.0-3.0); HEMATOCRIT 48.5 % (36.0-47.0); HEMOGLOBIN 14.5 g/dl (12.0-15.5); LYMPH # 0.5 10^3/uL (1.5-5.0); LYMPH % 4.4 % (24.0-44.0); MEAN CORPUSCULAR HEMOGLOBIN 28.2 pg (27.0-33.0); MEAN CORPUSCULAR HGB CONC 29.9 g/dl (32.0-36.5); MEAN CORPUSCULAR VOLUME 94.2 fl (80.0-96.0); MONO # 0.4 10^3/uL (0.0-0.8); MONO % 3.2 % (2.0-8.0); NEUTROPHILS # 10.9 10^3/uL (1.5-8.5); NEUTROPHILS % 91.9 % (36.0-66.0); PLATELET COUNT, AUTOMATED 263 10^3/uL (150-450); RED BLOOD COUNT 5.15 10^6/uL (4.00-5.40); WHITE BLOOD COUNT 11.9 10^3/uL (4.0-10.0)
[2023-03-08 05:17] LABS: ALBUMIN 3.2 G/DL (3.2-5.2); ALKALINE PHOSPHATASE 96 U/L (46-116); ALT/SGPT 46 U/L (7.0-40); AST/SGOT 26 U/L (<34); BILIRUBIN,TOTAL 0.4 MG/DL (0.3-1.2); BLOOD UREA NITROGEN 30 MG/DL (9-23); CALCIUM LEVEL 9.6 MG/DL (8.3-10.6); CARBON DIOXIDE LEVEL 40 MMOL/L (20-31); CHLORIDE LEVEL 94 MMOL/L (98-107); CREATININE FOR GFR 0.54 MG/DL (0.55-1.30); GLOMERULAR FILTRATION RATE > 60.0 (>39); GLUCOSE, FASTING 110 MG/DL (74-106); MAGNESIUM LEVEL 2.1 MG/DL (1.8-2.4); POTASSIUM SERUM 4.8 MMOL/L (3.5-5.1); SODIUM LEVEL 138 MMOL/L (136-145); TOTAL PROTEIN 5.9 G/DL (5.7-8.2)
[2023-03-08] MEDS: HEPARIN SOD (PORCINE) 5000UNITS/ML 1ML VIAL/SYRINGE SC SCH ×3 (05:29→22:20)
[2023-03-08] MEDS: FLUTICASONE HFA 220 MCG 12 GM INHALER (FLOVENT) INH SCH ×2 (07:52→20:04)
[2023-03-08] MEDS ORDERED: AZITHROMYCIN 250MG TABLET PO SCH (09:00)
[2023-03-08] MEDS: PANTOPRAZOLE 40MG VIAL IV SCH (09:00)
[2023-03-08] MEDS: ESCITALOPRAM OXALATE 10 MG TAB (LEXAPRO) PO SCH (09:00)
[2023-03-08] MEDS: CARVedilol 6.25 MG TAB PO SCH (09:00)
[2023-03-08] MEDS: FUROSEMIDE 20 MG TAB PO SCH (09:00)
[2023-03-08 10:40] LABS: VENOUS BASE EXCESS 11.2 (-2.0-2.0); VENOUS HCO3 37.1 MMOL/L (23.0-27.0); VENOUS O2 SATURATION 99.3 % (60.0-80.0); VENOUS PARTIAL PRESSURE CO2 52.9 mmHg (38.0-50.0); VENOUS PARTIAL PRESSURE O2 242.7 mmHg (30.0-50.0); VENOUS PH 7.464 UNITS (7.330-7.430); VENOUS STANDARD HCO3 35.1 MMOL/L; VENOUS TOTAL CO2 38.7 MMOL/L (24.0-28.0)
[2023-03-08] MEDS: NICOTINE 21MG/24HR 1 EA TRANSDERMAL TD SCH (10:48)
[2023-03-08] MEDS: CIPROFLOXACIN 0.3% OPHTH SOLN 2.5ML OS SCH ×4 (10:48→20:09)
[2023-03-08] MEDS: methylPREDNISolone 125MG 2ML VIAL IV SCH ×2 (13:36→20:10)
[2023-03-08] MEDS: AZITHROMYCIN INJ 500 MG, VIAL MATE ADAPTER 1 EACH in NS 250 ML IV SCH (13:36)
[2023-03-08] MEDS ORDERED: FUROSEMIDE 40MG/4ML VIAL IV ONE (14:00)
[2023-03-08] MEDS ORDERED: LABETALOL 100MG/20ML VIAL IV SCH (14:00)
[2023-03-08] MEDS ORDERED: METOPROLOL 5 MG/5 ML VIAL IV PRN (14:35)
[2023-03-08] MEDS: LR 1,000 ML IV SCH (14:40)
[2023-03-08 15:15] LABS: VENOUS BASE EXCESS 6.8 (-2.0-2.0); VENOUS HCO3 35.1 MMOL/L (23.0-27.0); VENOUS O2 SATURATION 98.7 % (60.0-80.0); VENOUS PARTIAL PRESSURE CO2 66.7 mmHg (38.0-50.0); VENOUS PARTIAL PRESSURE O2 140.8 mmHg (30.0-50.0); VENOUS PH 7.339 UNITS (7.330-7.430); VENOUS STANDARD HCO3 30.7 MMOL/L; VENOUS TOTAL CO2 37.1 MMOL/L (24.0-28.0)
[2023-03-08] MEDS: METOPROLOL 5 MG/5 ML VIAL IV SCH ×2 (16:54→22:21)
[2023-03-08 18:04] LABS: VENOUS BASE EXCESS 12.2 (-2.0-2.0); VENOUS HCO3 40.9 MMOL/L (23.0-27.0); VENOUS O2 SATURATION 95.1 % (60.0-80.0); VENOUS PARTIAL PRESSURE CO2 72.1 mmHg (38.0-50.0); VENOUS PH 7.372 UNITS (7.330-7.430); VENOUS STANDARD HCO3 35.9 MMOL/L; VENOUS TOTAL CO2 43.1 MMOL/L (24.0-28.0)
[2023-03-08] MEDS: PRAVASTATIN 10 MG TAB PO SCH (20:11)
[2023-03-08] MEDS: ALPRAZolam 0.25 MG TAB PO PRN (22:51)
[2023-03-09] VITALS (26 sets, daily range): BP systolic 89–156; BP diastolic 52–94; TEMP 97.3–98.3; O2SAT 75–100
[2023-03-09] MEDS: IPRATROPIUM 0.5MG/ALBUTEROL 2.5MG INH SOL UD 3ML (DUONEB) NEB SCH ×4 (01:25→19:59)
[2023-03-09] MEDS: METOPROLOL 5 MG/5 ML VIAL IV SCH ×4 (04:43→22:20)
[2023-03-09] MEDS: HEPARIN SOD (PORCINE) 5000UNITS/ML 1ML VIAL/SYRINGE SC SCH (05:00)
[2023-03-09] MEDS ORDERED: ONDANSETRON 4MG 2ML VIAL IV ONE (05:00)
[2023-03-09] MEDS ORDERED: MORPHINE 2 MG/ML 1ML VIAL IV ONE (05:15)
[2023-03-09 05:16] LABS: BASO % 0.1 % (0.0-1.0); HEMATOCRIT 45.2 % (36.0-47.0); LYMPH # 0.5 10^3/uL (1.5-5.0); LYMPH % 4.6 % (24.0-44.0); MEAN CORPUSCULAR HEMOGLOBIN 28.9 pg (27.0-33.0); MEAN CORPUSCULAR VOLUME 93.4 fl (80.0-96.0); MONO # 0.7 10^3/uL (0.0-0.8); MONO % 6.5 % (2.0-8.0); NEUTROPHILS # 9.3 10^3/uL (1.5-8.5); NEUTROPHILS % 88.2 % (36.0-66.0); PLATELET COUNT, AUTOMATED 237 10^3/uL (150-450); RED BLOOD COUNT 4.84 10^6/uL (4.00-5.40); WHITE BLOOD COUNT 10.5 10^3/uL (4.0-10.0)
[2023-03-09 05:25] LABS: PHOSPHORUS LEVEL 3.3 MG/DL (2.4-5.1)
[2023-03-09 05:26] LABS: ALBUMIN 3.2 G/DL (3.2-5.2); ALKALINE PHOSPHATASE 80 U/L (46-116); ALT/SGPT 47 U/L (7.0-40); AST/SGOT 30 U/L (<34); BILIRUBIN,TOTAL 0.9 MG/DL (0.3-1.2); BLOOD UREA NITROGEN 35 MG/DL (9-23); CALCIUM LEVEL 9.5 MG/DL (8.3-10.6); CARBON DIOXIDE LEVEL > 40.0 MMOL/L (20-31); CHLORIDE LEVEL 96 MMOL/L (98-107); CREATININE FOR GFR 0.51 MG/DL (0.55-1.30); GLOMERULAR FILTRATION RATE > 60.0 (>39); GLUCOSE, FASTING 128 MG/DL (74-106); POTASSIUM SERUM 4.8 MMOL/L (3.5-5.1); SODIUM LEVEL 141 MMOL/L (136-145); TOTAL PROTEIN 5.7 G/DL (5.7-8.2)
[2023-03-09 05:27] LABS: THYROID STIMULATING HORMONE 0.533 uIU/ML (0.55-4.78)
[2023-03-09 05:28] LABS: FREE T4 0.88 NG/DL (0.89-1.76)
[2023-03-09 06:21] LABS: VENOUS BASE EXCESS 13.4 (-2.0-2.0); VENOUS HCO3 42.9 MMOL/L (23.0-27.0); VENOUS O2 SATURATION 99.3 % (60.0-80.0); VENOUS PARTIAL PRESSURE CO2 82.5 mmHg (38.0-50.0); VENOUS PH 7.334 UNITS (7.330-7.430); VENOUS STANDARD HCO3 37.2 MMOL/L; VENOUS TOTAL CO2 45.4 MMOL/L (24.0-28.0)
[2023-03-09] MEDS: FLUTICASONE HFA 220 MCG 12 GM INHALER (FLOVENT) INH SCH ×2 (07:50→19:59)
[2023-03-09] MEDS: methylPREDNISolone 125MG 2ML VIAL IV SCH ×2 (08:41→20:30)
[2023-03-09] MEDS: CIPROFLOXACIN 0.3% OPHTH SOLN 2.5ML OS SCH ×4 (08:41→20:30)
[2023-03-09] MEDS: PANTOPRAZOLE 40MG VIAL IV SCH (08:41)
[2023-03-09] MEDS: NICOTINE 21MG/24HR 1 EA TRANSDERMAL TD SCH (08:41)
[2023-03-09] MEDS: FUROSEMIDE 20 MG TAB PO SCH (09:00)
[2023-03-09] MEDS: ESCITALOPRAM OXALATE 10 MG TAB (LEXAPRO) PO SCH (09:00)
[2023-03-09] MEDS: LR 1,000 ML IV SCH ×2 (10:20)
[2023-03-09] MEDS ORDERED: FUROSEMIDE 20MG/2ML VIAL IV ONE (11:50)
[2023-03-09] MEDS ORDERED: ENOXAPARIN 40MG/0.4ML SYRINGE (J1650 PER 10MG) SC ONE (12:00)
[2023-03-09 12:12] LABS: VENOUS BASE EXCESS 10.2 (-2.0-2.0); VENOUS O2 SATURATION 97.3 % (60.0-80.0); VENOUS PARTIAL PRESSURE CO2 72.8 mmHg (38.0-50.0); VENOUS PARTIAL PRESSURE O2 101.6 mmHg (30.0-50.0); VENOUS PH 7.347 UNITS (7.330-7.430); VENOUS TOTAL CO2 41.3 MMOL/L (24.0-28.0)
[2023-03-09] MEDS: AZITHROMYCIN INJ 500 MG, VIAL MATE ADAPTER 1 EACH in NS 250 ML IV SCH (13:05)
[2023-03-09] MEDS: PRAVASTATIN 10 MG TAB PO SCH (20:30)
[2023-03-09] MEDS: ALPRAZolam 0.25 MG TAB PO PRN (22:21)
[2023-03-10] VITALS (32 sets, daily range): BP systolic 109–156; BP diastolic 53–86; TEMP 97–98.4; O2SAT 78–100
[2023-03-10] MEDS: IPRATROPIUM 0.5MG/ALBUTEROL 2.5MG INH SOL UD 3ML (DUONEB) NEB SCH ×4 (00:22→20:12)
[2023-03-10] MEDS: METOPROLOL 5 MG/5 ML VIAL IV SCH ×4 (05:11→23:00)
[2023-03-10 05:24] LABS: VENOUS HCO3 37.9 MMOL/L (23.0-27.0); VENOUS O2 SATURATION 94.2 % (60.0-80.0); VENOUS PARTIAL PRESSURE CO2 66.1 mmHg (38.0-50.0); VENOUS PARTIAL PRESSURE O2 75.1 mmHg (30.0-50.0); VENOUS PH 7.376 UNITS (7.330-7.430); VENOUS STANDARD HCO3 33.6 MMOL/L; VENOUS TOTAL CO2 39.9 MMOL/L (24.0-28.0)
[2023-03-10 05:29] LABS: HEMATOCRIT 42.7 % (36.0-47.0); HEMOGLOBIN 13.3 g/dl (12.0-15.5); LYMPH # 0.4 10^3/uL (1.5-5.0); LYMPH % 4.8 % (24.0-44.0); MEAN CORPUSCULAR HEMOGLOBIN 28.9 pg (27.0-33.0); MEAN CORPUSCULAR HGB CONC 31.1 g/dl (32.0-36.5); MEAN CORPUSCULAR VOLUME 92.6 fl (80.0-96.0); MONO # 0.4 10^3/uL (0.0-0.8); MONO % 5.1 % (2.0-8.0); NEUTROPHILS # 7.1 10^3/uL (1.5-8.5); NEUTROPHILS % 89.7 % (36.0-66.0); PLATELET COUNT, AUTOMATED 198 10^3/uL (150-450); RED BLOOD COUNT 4.61 10^6/uL (4.00-5.40); WHITE BLOOD COUNT 7.9 10^3/uL (4.0-10.0)
[2023-03-10 05:59] LABS: ALKALINE PHOSPHATASE 62 U/L (46-116); ALT/SGPT 44 U/L (7.0-40); AST/SGOT 27 U/L (<34); BLOOD UREA NITROGEN 34 MG/DL (9-23); CARBON DIOXIDE LEVEL > 40.0 MMOL/L (20-31); CHLORIDE LEVEL 97 MMOL/L (98-107); CREATININE FOR GFR 0.52 MG/DL (0.55-1.30); GLOMERULAR FILTRATION RATE > 60.0 (>39); GLUCOSE, FASTING 136 MG/DL (74-106); POTASSIUM SERUM 4.5 MMOL/L (3.5-5.1); SODIUM LEVEL 141 MMOL/L (136-145); TOTAL PROTEIN 5.2 G/DL (5.7-8.2)
[2023-03-10] MEDS: FLUTICASONE HFA 220 MCG 12 GM INHALER (FLOVENT) INH SCH ×2 (07:15→20:12)
[2023-03-10] MEDS ORDERED: FUROSEMIDE 20MG/2ML VIAL IV ONE (08:15)
[2023-03-10] MEDS: methylPREDNISolone 125MG 2ML VIAL IV SCH ×2 (08:30→21:01)
[2023-03-10] MEDS: PANTOPRAZOLE 40MG VIAL IV SCH (08:30)
[2023-03-10] MEDS: NICOTINE 21MG/24HR 1 EA TRANSDERMAL TD SCH (08:33)
[2023-03-10] MEDS: ENOXAPARIN 40MG/0.4ML SYRINGE (J1650 PER 10MG) SC SCH (08:34)
[2023-03-10] MEDS: ESCITALOPRAM OXALATE 10 MG TAB (LEXAPRO) PO SCH (08:34)
[2023-03-10] MEDS: CIPROFLOXACIN 0.3% OPHTH SOLN 2.5ML OS SCH ×4 (11:14→21:02)
[2023-03-10 14:56] LABS: VENOUS BASE EXCESS 15.5 (-2.0-2.0); VENOUS HCO3 43.9 MMOL/L (23.0-27.0); VENOUS O2 SATURATION 98.6 % (60.0-80.0); VENOUS PARTIAL PRESSURE CO2 71.2 mmHg (38.0-50.0); VENOUS PARTIAL PRESSURE O2 135.3 mmHg (30.0-50.0); VENOUS PH 7.408 UNITS (7.330-7.430); VENOUS STANDARD HCO3 39.5 MMOL/L; VENOUS TOTAL CO2 46.1 MMOL/L (24.0-28.0)
[2023-03-10] MEDS: PRAVASTATIN 10 MG TAB PO SCH (21:01)
[2023-03-11] VITALS (19 sets, daily range): BP systolic 118–153; BP diastolic 58–97; TEMP 97.3–100; O2SAT 85–100
[2023-03-11] MEDS: IPRATROPIUM 0.5MG/ALBUTEROL 2.5MG INH SOL UD 3ML (DUONEB) NEB SCH ×4 (00:13→19:12)
[2023-03-11] MEDS: METOPROLOL 5 MG/5 ML VIAL IV SCH (04:38)
[2023-03-11 05:00] LABS: HEMATOCRIT 44.4 % (36.0-47.0); HEMOGLOBIN 13.6 g/dl (12.0-15.5); LYMPH # 0.5 10^3/uL (1.5-5.0); LYMPH % 5.2 % (24.0-44.0); MEAN CORPUSCULAR HEMOGLOBIN 28.6 pg (27.0-33.0); MEAN CORPUSCULAR HGB CONC 30.6 g/dl (32.0-36.5); MEAN CORPUSCULAR VOLUME 93.5 fl (80.0-96.0); MONO # 0.5 10^3/uL (0.0-0.8); MONO % 5.4 % (2.0-8.0); NEUTROPHILS # 7.9 10^3/uL (1.5-8.5); NEUTROPHILS % 88.8 % (36.0-66.0); PLATELET COUNT, AUTOMATED 188 10^3/uL (150-450); RED BLOOD COUNT 4.75 10^6/uL (4.00-5.40); WHITE BLOOD COUNT 8.9 10^3/uL (4.0-10.0)
[2023-03-11 05:44] LABS: ALKALINE PHOSPHATASE 58 U/L (46-116); ALT/SGPT 49 U/L (7.0-40); AST/SGOT 27 U/L (<34); BILIRUBIN,TOTAL 1.1 MG/DL (0.3-1.2); BLOOD UREA NITROGEN 29 MG/DL (9-23); CALCIUM LEVEL 9.1 MG/DL (8.3-10.6); CARBON DIOXIDE LEVEL > 40.0 MMOL/L (20-31); CHLORIDE LEVEL 96 MMOL/L (98-107); CREATININE FOR GFR 0.51 MG/DL (0.55-1.30); GLOMERULAR FILTRATION RATE > 60.0 (>39); GLUCOSE, FASTING 123 MG/DL (74-106); POTASSIUM SERUM 4.3 MMOL/L (3.5-5.1); SODIUM LEVEL 143 MMOL/L (136-145); TOTAL PROTEIN 5.3 G/DL (5.7-8.2)
[2023-03-11] MEDS: FLUTICASONE HFA 220 MCG 12 GM INHALER (FLOVENT) INH SCH ×2 (07:09→19:11)
[2023-03-11] MEDS: PANTOPRAZOLE 40MG VIAL IV SCH (09:38)
[2023-03-11] MEDS: NICOTINE 21MG/24HR 1 EA TRANSDERMAL TD SCH (09:38)
[2023-03-11] MEDS: ENOXAPARIN 40MG/0.4ML SYRINGE (J1650 PER 10MG) SC SCH (09:38)
[2023-03-11] MEDS: predniSONE 20 MG TAB PO SCH (09:38)
[2023-03-11] MEDS: ESCITALOPRAM OXALATE 10 MG TAB (LEXAPRO) PO SCH (09:38)
[2023-03-11] MEDS: CIPROFLOXACIN 0.3% OPHTH SOLN 2.5ML OS SCH ×4 (09:39→21:25)
[2023-03-11] MEDS: CARVedilol 6.25 MG TAB PO SCH ×2 (12:27→21:25)
[2023-03-11] MEDS ORDERED: NEOSPORIN OINT 0.9 GM PKT TOP ONE (18:05)
[2023-03-11] MEDS: PRAVASTATIN 10 MG TAB PO SCH (21:25)
[2023-03-12] VITALS (11 sets, daily range): BP systolic 116–158; BP diastolic 68–89; TEMP 98.4–99.6; O2SAT 89–99
[2023-03-12] MEDS: IPRATROPIUM 0.5MG/ALBUTEROL 2.5MG INH SOL UD 3ML (DUONEB) NEB SCH ×4 (02:51→19:04)
[2023-03-12 04:36] LABS: VENOUS PH 7.339 UNITS (7.330-7.430)
[2023-03-12 04:37] LABS: VENOUS BASE EXCESS 14.4 (-2.0-2.0); VENOUS HCO3 44.6 MMOL/L (23.0-27.0); VENOUS O2 SATURATION 98.8 % (60.0-80.0); VENOUS PARTIAL PRESSURE CO2 84.8 mmHg (38.0-50.0); VENOUS PARTIAL PRESSURE O2 155.1 mmHg (30.0-50.0); VENOUS STANDARD HCO3 38.4 MMOL/L; VENOUS TOTAL CO2 47.2 MMOL/L (24.0-28.0)
[2023-03-12 04:53] LABS: BASO % 0.1 % (0.0-1.0); EOS # 0.1 10^3/uL (0.0-0.5); EOS % 0.5 % (0.0-3.0); HEMATOCRIT 45.9 % (36.0-47.0); HEMOGLOBIN 13.8 g/dl (12.0-15.5); LYMPH # 1.5 10^3/uL (1.5-5.0); LYMPH % 11.7 % (24.0-44.0); MEAN CORPUSCULAR HEMOGLOBIN 28.3 pg (27.0-33.0); MEAN CORPUSCULAR HGB CONC 30.1 g/dl (32.0-36.5); MEAN CORPUSCULAR VOLUME 94.1 fl (80.0-96.0); MONO # 1.4 10^3/uL (0.0-0.8); MONO % 11.1 % (2.0-8.0); NEUTROPHILS # 9.6 10^3/uL (1.5-8.5); NEUTROPHILS % 76.1 % (36.0-66.0); PLATELET COUNT, AUTOMATED 157 10^3/uL (150-450); RED BLOOD COUNT 4.88 10^6/uL (4.00-5.40); WHITE BLOOD COUNT 12.6 10^3/uL (4.0-10.0)
[2023-03-12 05:17] LABS: ALKALINE PHOSPHATASE 56 U/L (46-116); ALT/SGPT 52 U/L (7.0-40); AST/SGOT 31 U/L (<34); BILIRUBIN,TOTAL 1.1 MG/DL (0.3-1.2); BLOOD UREA NITROGEN 25 MG/DL (9-23); CALCIUM LEVEL 8.6 MG/DL (8.3-10.6); CARBON DIOXIDE LEVEL > 40.0 MMOL/L (20-31); CHLORIDE LEVEL 92 MMOL/L (98-107); CREATININE FOR GFR 0.49 MG/DL (0.55-1.30); GLOMERULAR FILTRATION RATE > 60.0 (>39); GLUCOSE, FASTING 84 MG/DL (74-106); SODIUM LEVEL 139 MMOL/L (136-145)
[2023-03-12] MEDS: FLUTICASONE HFA 220 MCG 12 GM INHALER (FLOVENT) INH SCH ×2 (08:00→19:04)
[2023-03-12] MEDS: NICOTINE 21MG/24HR 1 EA TRANSDERMAL TD SCH (08:17)
[2023-03-12] MEDS: ESCITALOPRAM OXALATE 10 MG TAB (LEXAPRO) PO SCH (08:17)
[2023-03-12] MEDS: predniSONE 20 MG TAB PO SCH (08:18)
[2023-03-12] MEDS: PANTOPRAZOLE 40MG TAB (PROTONIX) PO SCH (08:18)
[2023-03-12] MEDS: CARVedilol 6.25 MG TAB PO SCH ×2 (08:18→20:28)
[2023-03-12] MEDS: ENOXAPARIN 40MG/0.4ML SYRINGE (J1650 PER 10MG) SC SCH (08:18)
[2023-03-12] MEDS: CIPROFLOXACIN 0.3% OPHTH SOLN 2.5ML OS SCH (08:20)
[2023-03-12] MEDS ORDERED: FUROSEMIDE 20MG/2ML VIAL IV ONE (12:00)
[2023-03-12] MEDS: PRAVASTATIN 10 MG TAB PO SCH (20:28)
[2023-03-13] VITALS (8 sets, daily range): BP systolic 106–178; BP diastolic 60–90; TEMP 97.7–98.9; O2SAT 90–100
[2023-03-13] MEDS: IPRATROPIUM 0.5MG/ALBUTEROL 2.5MG INH SOL UD 3ML (DUONEB) NEB SCH ×4 (01:02→19:40)
[2023-03-13] MEDS ORDERED: **hydrALAZINE** 10 MG TAB PO ONE ×2 (04:15→10:50)
[2023-03-13 05:40] LABS: BASO % 0.1 % (0.0-1.0); EOS # 0.1 10^3/uL (0.0-0.5); EOS % 0.9 % (0.0-3.0); HEMATOCRIT 50.1 % (36.0-47.0); LYMPH # 1.8 10^3/uL (1.5-5.0); LYMPH % 11.2 % (24.0-44.0); MEAN CORPUSCULAR HEMOGLOBIN 28.5 pg (27.0-33.0); MEAN CORPUSCULAR HGB CONC 29.9 g/dl (32.0-36.5); MEAN CORPUSCULAR VOLUME 95.2 fl (80.0-96.0); MONO % 10.5 % (2.0-8.0); NEUTROPHILS % 76.7 % (36.0-66.0); PLATELET COUNT, AUTOMATED 148 10^3/uL (150-450); RED BLOOD COUNT 5.26 10^6/uL (4.00-5.40); WHITE BLOOD COUNT 15.7 10^3/uL (4.0-10.0)
[2023-03-13 06:03] LABS: PROCALCITONIN <0.04 ng/ml
[2023-03-13 06:06] LABS: BLOOD UREA NITROGEN 25 MG/DL (9-23); CARBON DIOXIDE LEVEL > 40.0 MMOL/L (20-31); CHLORIDE LEVEL 91 MMOL/L (98-107); CREATININE FOR GFR 0.49 MG/DL (0.55-1.30); GLOMERULAR FILTRATION RATE > 60.0 (>39); GLUCOSE, FASTING 78 MG/DL (74-106); POTASSIUM SERUM 4.7 MMOL/L (3.5-5.1); SODIUM LEVEL 139 MMOL/L (136-145)
[2023-03-13 06:19] LABS: MONO # 1.6 10^3/uL (0.0-0.8)
[2023-03-13 07:54] LABS: THYROID STIMULATING HORMONE 2.259 uIU/ML (0.55-4.78)
[2023-03-13 07:55] LABS: FREE T4 0.77 NG/DL (0.89-1.76)
[2023-03-13 07:57] LABS: FREE T3 1.8 PG/ML (2.3-4.2); TOTAL T3 53.9 NG/DL (60.0-181.0)
[2023-03-13] MEDS: FLUTICASONE HFA 220 MCG 12 GM INHALER (FLOVENT) INH SCH ×2 (08:10→19:40)
[2023-03-13] MEDS: NICOTINE 21MG/24HR 1 EA TRANSDERMAL TD SCH (09:18)
[2023-03-13] MEDS: predniSONE 20 MG TAB PO SCH (09:19)
[2023-03-13] MEDS: ENOXAPARIN 40MG/0.4ML SYRINGE (J1650 PER 10MG) SC SCH (09:19)
[2023-03-13] MEDS: CARVedilol 6.25 MG TAB PO SCH ×2 (09:20→20:43)
[2023-03-13] MEDS: ESCITALOPRAM OXALATE 10 MG TAB (LEXAPRO) PO SCH (09:20)
[2023-03-13] MEDS: PANTOPRAZOLE 40MG TAB (PROTONIX) PO SCH (09:20)
[2023-03-13] MEDS ORDERED: FLUZONE HIGH DOSE(65YR UP)QUAD/PF 240MCG/0.7ML SYRINGE IM.IMMUN ONE (12:00)
[2023-03-13] MEDS: PRAVASTATIN 10 MG TAB PO SCH (20:43)
[2023-03-14] VITALS (7 sets, daily range): BP systolic 124–180; BP diastolic 64–84; TEMP 97.3–98.4; O2SAT 93–99
[2023-03-14] MEDS: IPRATROPIUM 0.5MG/ALBUTEROL 2.5MG INH SOL UD 3ML (DUONEB) NEB SCH ×4 (02:35→19:28)
[2023-03-14 05:42] LABS: BASO % 0.1 % (0.0-1.0); EOS # 0.1 10^3/uL (0.0-0.5); EOS % 0.9 % (0.0-3.0); HEMATOCRIT 46.2 % (36.0-47.0); HEMOGLOBIN 13.8 g/dl (12.0-15.5); LYMPH % 13.7 % (24.0-44.0); MEAN CORPUSCULAR HEMOGLOBIN 28.6 pg (27.0-33.0); MEAN CORPUSCULAR HGB CONC 29.9 g/dl (32.0-36.5); MEAN CORPUSCULAR VOLUME 95.7 fl (80.0-96.0); MONO # 1.4 10^3/uL (0.0-0.8); MONO % 9.5 % (2.0-8.0); NEUTROPHILS # 10.7 10^3/uL (1.5-8.5); NEUTROPHILS % 75.1 % (36.0-66.0); PLATELET COUNT, AUTOMATED 132 10^3/uL (150-450); RED BLOOD COUNT 4.83 10^6/uL (4.00-5.40); WHITE BLOOD COUNT 14.3 10^3/uL (4.0-10.0)
[2023-03-14 06:05] LABS: BLOOD UREA NITROGEN 23 MG/DL (9-23); CALCIUM LEVEL 8.6 MG/DL (8.3-10.6); CARBON DIOXIDE LEVEL > 40.0 MMOL/L (20-31); CHLORIDE LEVEL 93 MMOL/L (98-107); CREATININE FOR GFR 0.48 MG/DL (0.55-1.30); GLOMERULAR FILTRATION RATE > 60.0 (>39); GLUCOSE, FASTING 113 MG/DL (74-106); POTASSIUM SERUM 4.1 MMOL/L (3.5-5.1); SODIUM LEVEL 140 MMOL/L (136-145)
[2023-03-14] MEDS: FLUTICASONE HFA 220 MCG 12 GM INHALER (FLOVENT) INH SCH ×2 (07:40→19:27)
[2023-03-14] MEDS: ESCITALOPRAM OXALATE 10 MG TAB (LEXAPRO) PO SCH (08:22)
[2023-03-14] MEDS: ENOXAPARIN 40MG/0.4ML SYRINGE (J1650 PER 10MG) SC SCH (08:23)
[2023-03-14] MEDS: PANTOPRAZOLE 40MG TAB (PROTONIX) PO SCH (08:23)
[2023-03-14] MEDS: CARVedilol 6.25 MG TAB PO SCH ×2 (08:23→20:53)
[2023-03-14] MEDS: NICOTINE 21MG/24HR 1 EA TRANSDERMAL TD SCH (08:26)
[2023-03-14 11:47] LABS: ABG BASE EXCESS 13.2 (-2.0-2.0); ABG O2 SATURATION 91.8 % (95.0-99.0); ABG PARTIAL PRESSURE O2 61.7 mmHg (75.0-100.0); ABG STANDARD HCO3 36.9 MMOL/L. (22.0-26.0); ABG TOTAL CO2 45.5 MMOL/L (23.0-31.0); ABG pH (ARTERIAL) 7.344 UNITS (7.350-7.450)
[2023-03-14 11:51] LABS: ABG PARTIAL PRESSURE CO2 80.8 mmHg (35.0-45.0)
[2023-03-14] MEDS ORDERED: SENNA 8.6 MG TAB (SENOKOT) PO PRN (12:55)
[2023-03-14] MEDS: METAMUCIL (PSYLLIUM) PACKET PO SCH ×2 (13:15→20:54)
[2023-03-14] MEDS: MIRALAX *UNIT DOSE* 17GM PACKET PO SCH ×2 (13:15→20:54)
[2023-03-14] MEDS: LEVALBUTEROL 1.25MG 0.5ML CONCENTRATE NEB NEB PRN ×2 (14:19→19:27)
[2023-03-14] MEDS: PRAVASTATIN 10 MG TAB PO SCH (20:53)
[2023-03-15] MEDS: IPRATROPIUM 0.5MG/ALBUTEROL 2.5MG INH SOL UD 3ML (DUONEB) NEB SCH ×4 (01:07→19:56)
[2023-03-15 05:02] VITALS: BP 164/77; TEMP 97.2; O2SAT 97
[2023-03-15 06:21] LABS: BASO % 0.1 % (0.0-1.0); EOS # 0.3 10^3/uL (0.0-0.5); EOS % 2.2 % (0.0-3.0); HEMATOCRIT 48.7 % (36.0-47.0); HEMOGLOBIN 14.4 g/dl (12.0-15.5); LYMPH # 1.8 10^3/uL (1.5-5.0); LYMPH % 12.2 % (24.0-44.0); MEAN CORPUSCULAR HEMOGLOBIN 28.3 pg (27.0-33.0); MEAN CORPUSCULAR HGB CONC 29.6 g/dl (32.0-36.5); MEAN CORPUSCULAR VOLUME 95.9 fl (80.0-96.0); MONO # 1.4 10^3/uL (0.0-0.8); MONO % 9.7 % (2.0-8.0); NEUTROPHILS # 10.9 10^3/uL (1.5-8.5); PLATELET COUNT, AUTOMATED 145 10^3/uL (150-450); RED BLOOD COUNT 5.08 10^6/uL (4.00-5.40); WHITE BLOOD COUNT 14.5 10^3/uL (4.0-10.0)
[2023-03-15 06:46] LABS: BLOOD UREA NITROGEN 20 MG/DL (9-23); CALCIUM LEVEL 8.8 MG/DL (8.3-10.6); CARBON DIOXIDE LEVEL > 40.0 MMOL/L (20-31); CHLORIDE LEVEL 90 MMOL/L (98-107); CREATININE FOR GFR 0.55 MG/DL (0.55-1.30); GLOMERULAR FILTRATION RATE > 60.0 (>39); GLUCOSE, FASTING 66 MG/DL (74-106); POTASSIUM SERUM 4.4 MMOL/L (3.5-5.1); SODIUM LEVEL 139 MMOL/L (136-145)
[2023-03-15] MEDS: FLUTICASONE HFA 220 MCG 12 GM INHALER (FLOVENT) INH SCH ×2 (07:39→19:54)
[2023-03-15] MEDS: METAMUCIL (PSYLLIUM) PACKET PO SCH ×2 (08:15→20:41)
[2023-03-15] MEDS: NICOTINE 21MG/24HR 1 EA TRANSDERMAL TD SCH (08:15)
[2023-03-15] MEDS: MIRALAX *UNIT DOSE* 17GM PACKET PO SCH ×2 (08:15→20:41)
[2023-03-15] MEDS: ENOXAPARIN 40MG/0.4ML SYRINGE (J1650 PER 10MG) SC SCH (08:16)
[2023-03-15] MEDS: PANTOPRAZOLE 40MG TAB (PROTONIX) PO SCH (08:20)
[2023-03-15] MEDS: CARVedilol 6.25 MG TAB PO SCH ×2 (08:20→20:47)
[2023-03-15] MEDS: ACETAMINOPHEN 650MG ER TAB (TYLENOL ARTHRITIS) PO PRN (08:20)
[2023-03-15] MEDS: ESCITALOPRAM OXALATE 10 MG TAB (LEXAPRO) PO SCH (08:20)
[2023-03-15 10:12] VITALS: O2SAT 92
[2023-03-15] MEDS: PRAVASTATIN 10 MG TAB PO SCH (20:48)
[2023-03-16] MEDS: IPRATROPIUM 0.5MG/ALBUTEROL 2.5MG INH SOL UD 3ML (DUONEB) NEB SCH ×4 (01:56→19:22)
[2023-03-16 05:36] VITALS: BP 132/69; TEMP 97.2; O2SAT 95
[2023-03-16] MEDS: FLUTICASONE HFA 220 MCG 12 GM INHALER (FLOVENT) INH SCH ×2 (07:08→19:22)
[2023-03-16] MEDS: PANTOPRAZOLE 40MG TAB (PROTONIX) PO SCH (09:36)
[2023-03-16] MEDS: CARVedilol 6.25 MG TAB PO SCH ×2 (09:37→21:00)
[2023-03-16] MEDS: ESCITALOPRAM OXALATE 10 MG TAB (LEXAPRO) PO SCH (09:37)
[2023-03-16] MEDS: METAMUCIL (PSYLLIUM) PACKET PO SCH ×2 (09:37→20:24)
[2023-03-16] MEDS: ACETAMINOPHEN 650MG ER TAB (TYLENOL ARTHRITIS) PO PRN (09:37)
[2023-03-16] MEDS: MIRALAX *UNIT DOSE* 17GM PACKET PO SCH ×2 (09:37→20:25)
[2023-03-16] MEDS: ENOXAPARIN 40MG/0.4ML SYRINGE (J1650 PER 10MG) SC SCH (09:38)
[2023-03-16] MEDS: NICOTINE 21MG/24HR 1 EA TRANSDERMAL TD SCH (09:38)
[2023-03-16] MEDS: PRAVASTATIN 10 MG TAB PO SCH (20:25)
[2023-03-17] MEDS: IPRATROPIUM 0.5MG/ALBUTEROL 2.5MG INH SOL UD 3ML (DUONEB) NEB SCH ×4 (01:05→19:24)
[2023-03-17 06:00] VITALS: BP 178/80; TEMP 98.8; O2SAT 96
[2023-03-17 07:56] VITALS: BP 118/72
[2023-03-17] MEDS: FLUTICASONE HFA 220 MCG 12 GM INHALER (FLOVENT) INH SCH ×2 (07:58→19:24)
[2023-03-17] MEDS: CARVedilol 6.25 MG TAB PO SCH ×2 (08:51→20:12)
[2023-03-17] MEDS: PANTOPRAZOLE 40MG TAB (PROTONIX) PO SCH (08:51)
[2023-03-17] MEDS: ESCITALOPRAM OXALATE 10 MG TAB (LEXAPRO) PO SCH (08:51)
[2023-03-17] MEDS: MIRALAX *UNIT DOSE* 17GM PACKET PO SCH ×3 (08:52→20:19)
[2023-03-17] MEDS: METAMUCIL (PSYLLIUM) PACKET PO SCH ×3 (08:52→20:19)
[2023-03-17] MEDS: ENOXAPARIN 40MG/0.4ML SYRINGE (J1650 PER 10MG) SC SCH (08:52)
[2023-03-17] MEDS: NICOTINE 21MG/24HR 1 EA TRANSDERMAL TD SCH (08:52)
[2023-03-17] MEDS: SENNA 8.6 MG TAB (SENOKOT) PO SCH ×2 (12:00→18:00)
[2023-03-17] MEDS: ACETAMINOPHEN 650MG ER TAB (TYLENOL ARTHRITIS) PO PRN (20:12)
[2023-03-17] MEDS: PRAVASTATIN 10 MG TAB PO SCH (20:13)
[2023-03-18] MEDS: IPRATROPIUM 0.5MG/ALBUTEROL 2.5MG INH SOL UD 3ML (DUONEB) NEB SCH ×4 (01:00→19:27)
[2023-03-18 05:54] VITALS: BP 118/84; TEMP 97.7; O2SAT 97
[2023-03-18 06:30] LABS: FREE T4 0.93 NG/DL (0.89-1.76); THYROID STIMULATING HORMONE 2.366 uIU/ML (0.55-4.78)
[2023-03-18 06:31] LABS: FREE T3 2.7 PG/ML (2.3-4.2)
[2023-03-18] MEDS: FLUTICASONE HFA 220 MCG 12 GM INHALER (FLOVENT) INH SCH ×2 (07:34→19:27)
[2023-03-18] MEDS: ENOXAPARIN 40MG/0.4ML SYRINGE (J1650 PER 10MG) SC SCH (08:37)
[2023-03-18] MEDS: CARVedilol 6.25 MG TAB PO SCH ×2 (08:37→19:59)
[2023-03-18] MEDS: ESCITALOPRAM OXALATE 10 MG TAB (LEXAPRO) PO SCH (08:37)
[2023-03-18] MEDS: PANTOPRAZOLE 40MG TAB (PROTONIX) PO SCH (08:37)
[2023-03-18] MEDS: METAMUCIL (PSYLLIUM) PACKET PO SCH ×2 (08:38→20:01)
[2023-03-18] MEDS: SENNA 8.6 MG TAB (SENOKOT) PO SCH ×2 (08:38→15:35)
[2023-03-18] MEDS: MIRALAX *UNIT DOSE* 17GM PACKET PO SCH ×2 (08:38→20:01)
[2023-03-18] MEDS: NICOTINE 21MG/24HR 1 EA TRANSDERMAL TD SCH (08:38)
[2023-03-18] MEDS: ACETAMINOPHEN 650MG ER TAB (TYLENOL ARTHRITIS) PO PRN (19:58)
[2023-03-18] MEDS: PRAVASTATIN 10 MG TAB PO SCH (19:59)
[2023-03-19] MEDS: IPRATROPIUM 0.5MG/ALBUTEROL 2.5MG INH SOL UD 3ML (DUONEB) NEB SCH ×4 (02:51→21:03)
[2023-03-19 06:27] VITALS: BP 138/70; TEMP 97.6; O2SAT 95
[2023-03-19] MEDS: FLUTICASONE HFA 220 MCG 12 GM INHALER (FLOVENT) INH SCH ×2 (07:47→21:03)
[2023-03-19] MEDS: MIRALAX *UNIT DOSE* 17GM PACKET PO SCH ×2 (09:12→20:47)
[2023-03-19] MEDS: NICOTINE 21MG/24HR 1 EA TRANSDERMAL TD SCH (09:13)
[2023-03-19] MEDS: METAMUCIL (PSYLLIUM) PACKET PO SCH ×2 (09:13→20:47)
[2023-03-19] MEDS: ENOXAPARIN 40MG/0.4ML SYRINGE (J1650 PER 10MG) SC SCH (09:13)
[2023-03-19] MEDS: CARVedilol 6.25 MG TAB PO SCH ×2 (09:15→20:41)
[2023-03-19] MEDS: PANTOPRAZOLE 40MG TAB (PROTONIX) PO SCH (09:15)
[2023-03-19] MEDS: ESCITALOPRAM OXALATE 10 MG TAB (LEXAPRO) PO SCH (09:15)
[2023-03-19] MEDS: SENNA 8.6 MG TAB (SENOKOT) PO SCH ×2 (12:00→17:53)
[2023-03-19] MEDS: PRAVASTATIN 10 MG TAB PO SCH (20:42)
[2023-03-19 21:05] VITALS: O2SAT 96
[2023-03-20] VITALS (28 sets, daily range): BP systolic 97–177; BP diastolic 50–94; TEMP 98.2–98.8; O2SAT 86–97
[2023-03-20] MEDS: IPRATROPIUM 0.5MG/ALBUTEROL 2.5MG INH SOL UD 3ML (DUONEB) NEB SCH ×4 (02:00→19:43)
[2023-03-20 06:16] LABS: VENOUS BASE EXCESS 14.9 (-2.0-2.0); VENOUS HCO3 45.6 MMOL/L (23.0-27.0); VENOUS PARTIAL PRESSURE O2 202.4 mmHg (30.0-50.0); VENOUS PH 7.318 UNITS (7.330-7.430); VENOUS STANDARD HCO3 38.9 MMOL/L; VENOUS TOTAL CO2 48.4 MMOL/L (24.0-28.0)
[2023-03-20 06:28] LABS: ABG pH (ARTERIAL) 7.212 UNITS (7.350-7.450)
[2023-03-20 06:29] LABS: ABG PARTIAL PRESSURE CO2 126.7 mmHg (35.0-45.0); ABG PARTIAL PRESSURE O2 68.4 mmHg (75.0-100.0); ABG TOTAL CO2 49.8 MMOL/L (23.0-31.0)
[2023-03-20 06:30] LABS: ABG BASE EXCESS 16.1 (-2.0-2.0); ABG O2 SATURATION 92.2 % (95.0-99.0)
[2023-03-20] MEDS ORDERED: NS 1,000 ML IV ONE (06:40)
[2023-03-20 06:55] LABS: CK-MB VALUE MASS 2.4 NG/ML (<3.6)
[2023-03-20 07:17] LABS: HEMATOCRIT 46.5 % (36.0-47.0); HEMOGLOBIN 13.4 g/dl (12.0-15.5); MEAN CORPUSCULAR HEMOGLOBIN 28.1 pg (27.0-33.0); MEAN CORPUSCULAR HGB CONC 28.8 g/dl (32.0-36.5); MEAN CORPUSCULAR VOLUME 97.5 fl (80.0-96.0); PLATELET COUNT, AUTOMATED 145 10^3/uL (150-450); RED BLOOD COUNT 4.77 10^6/uL (4.00-5.40); WHITE BLOOD COUNT 12.2 10^3/uL (4.0-10.0)
[2023-03-20] MEDS: ENOXAPARIN 40MG/0.4ML SYRINGE (J1650 PER 10MG) SC SCH (10:20)
[2023-03-20] MEDS: BUDESONIDE 0.5 MG/2 ML INHALATION SUSPENSION INH SCH ×2 (12:11→19:43)
[2023-03-20 12:37] LABS: ABG pH (ARTERIAL) 7.389 UNITS (7.350-7.450)
[2023-03-20 12:40] LABS: ABG BASE EXCESS 16.4 (-2.0-2.0); ABG HCO3 45.2 MMOL/L (22.0-26.0); ABG O2 SATURATION 93.6 % (95.0-99.0); ABG PARTIAL PRESSURE O2 61.8 mmHg (75.0-100.0); ABG STANDARD HCO3 40.3 MMOL/L. (22.0-26.0); ABG TOTAL CO2 47.6 MMOL/L (23.0-31.0)
[2023-03-20 12:42] LABS: ABG PARTIAL PRESSURE CO2 76.6 mmHg (35.0-45.0)
[2023-03-20 14:49] LABS: BLOOD UREA NITROGEN 9 MG/DL (9-23); CALCIUM LEVEL 8.4 MG/DL (8.3-10.6); CARBON DIOXIDE LEVEL > 40.0 MMOL/L (20-31); CHLORIDE LEVEL 92 MMOL/L (98-107); CREATININE FOR GFR 0.35 MG/DL (0.55-1.30); GLOMERULAR FILTRATION RATE > 60.0 (>39); GLUCOSE, FASTING 62 MG/DL (74-106); POTASSIUM SERUM 4.5 MMOL/L (3.5-5.1); SODIUM LEVEL 138 MMOL/L (136-145)
[2023-03-20] MEDS: ALPRAZolam 0.25 MG TAB PO PRN (15:17)
[2023-03-20] MEDS: methylPREDNISolone 125MG 2ML VIAL IV SCH (16:30)
[2023-03-21] VITALS (21 sets, daily range): BP systolic 96–155; BP diastolic 58–92; TEMP 97.2–100.2; O2SAT 90–98
[2023-03-21] MEDS: IPRATROPIUM 0.5MG/ALBUTEROL 2.5MG INH SOL UD 3ML (DUONEB) NEB SCH ×4 (00:51→19:33)
[2023-03-21 04:57] LABS: HEMATOCRIT 43.3 % (36.0-47.0); HEMOGLOBIN 13.1 g/dl (12.0-15.5); MEAN CORPUSCULAR HEMOGLOBIN 28.4 pg (27.0-33.0); MEAN CORPUSCULAR HGB CONC 30.3 g/dl (32.0-36.5); MEAN CORPUSCULAR VOLUME 93.7 fl (80.0-96.0); PLATELET COUNT, AUTOMATED 166 10^3/uL (150-450); RED BLOOD COUNT 4.62 10^6/uL (4.00-5.40); WHITE BLOOD COUNT 8.2 10^3/uL (4.0-10.0)
[2023-03-21 05:22] LABS: BLOOD UREA NITROGEN 13 MG/DL (9-23); CALCIUM LEVEL 8.8 MG/DL (8.3-10.6); CARBON DIOXIDE LEVEL > 40.0 MMOL/L (20-31); CHLORIDE LEVEL 92 MMOL/L (98-107); CREATININE FOR GFR 0.38 MG/DL (0.55-1.30); GLOMERULAR FILTRATION RATE > 60.0 (>39); GLUCOSE, FASTING 95 MG/DL (74-106); POTASSIUM SERUM 4.4 MMOL/L (3.5-5.1); SODIUM LEVEL 138 MMOL/L (136-145)
[2023-03-21 06:09] LABS: ABG BASE EXCESS 15.2 (-2.0-2.0); ABG HCO3 43.9 MMOL/L (22.0-26.0); ABG O2 SATURATION 96.5 % (95.0-99.0); ABG PARTIAL PRESSURE O2 89.6 mmHg (75.0-100.0); ABG STANDARD HCO3 39.1 MMOL/L. (22.0-26.0); ABG TOTAL CO2 46.1 MMOL/L (23.0-31.0); ABG pH (ARTERIAL) 7.389 UNITS (7.350-7.450)
[2023-03-21 06:11] LABS: ABG PARTIAL PRESSURE CO2 74.3 mmHg (35.0-45.0)
[2023-03-21] MEDS: BUDESONIDE 0.5 MG/2 ML INHALATION SUSPENSION INH SCH ×2 (07:41→19:33)
[2023-03-21] MEDS: methylPREDNISolone 125MG 2ML VIAL IV SCH ×4 (08:21→23:25)
[2023-03-21] MEDS: ENOXAPARIN 40MG/0.4ML SYRINGE (J1650 PER 10MG) SC SCH (08:27)
[2023-03-21] MEDS ORDERED: MORPHINE 2 MG/ML 1ML VIAL IV ONE (08:30)
[2023-03-21] MEDS: ALPRAZolam 0.25 MG TAB PO PRN (17:54)
[2023-03-21 20:14] LABS: ABG BASE EXCESS 13.3 (-2.0-2.0); ABG HCO3 41.8 MMOL/L (22.0-26.0); ABG O2 SATURATION 97.7 % (95.0-99.0); ABG PARTIAL PRESSURE O2 108.2 mmHg (75.0-100.0); ABG STANDARD HCO3 37.1 MMOL/L. (22.0-26.0)
[2023-03-21 20:17] LABS: ABG PARTIAL PRESSURE CO2 73.9 mmHg (35.0-45.0)
[2023-03-22] VITALS (16 sets, daily range): BP systolic 132–180; BP diastolic 73–85; TEMP 97.9–99.7; O2SAT 92–97
[2023-03-22] MEDS: IPRATROPIUM 0.5MG/ALBUTEROL 2.5MG INH SOL UD 3ML (DUONEB) NEB SCH ×2 (02:52→07:46)
[2023-03-22 04:57] LABS: HEMATOCRIT 43.6 % (36.0-47.0); HEMOGLOBIN 13.2 g/dl (12.0-15.5); MEAN CORPUSCULAR HEMOGLOBIN 27.9 pg (27.0-33.0); MEAN CORPUSCULAR HGB CONC 30.3 g/dl (32.0-36.5); MEAN CORPUSCULAR VOLUME 92.2 fl (80.0-96.0); PLATELET COUNT, AUTOMATED 173 10^3/uL (150-450); RED BLOOD COUNT 4.73 10^6/uL (4.00-5.40)
[2023-03-22 05:17] LABS: BLOOD UREA NITROGEN 21 MG/DL (9-23); CALCIUM LEVEL 8.9 MG/DL (8.3-10.6); CARBON DIOXIDE LEVEL > 40.0 MMOL/L (20-31); CHLORIDE LEVEL 94 MMOL/L (98-107); CREATININE FOR GFR 0.43 MG/DL (0.55-1.30); GLOMERULAR FILTRATION RATE > 60.0 (>39); GLUCOSE, FASTING 112 MG/DL (74-106); POTASSIUM SERUM 4.5 MMOL/L (3.5-5.1); SODIUM LEVEL 142 MMOL/L (136-145)
[2023-03-22 05:54] LABS: ABG BASE EXCESS 11.9 (-2.0-2.0); ABG HCO3 39.5 MMOL/L (22.0-26.0); ABG PARTIAL PRESSURE O2 107.9 mmHg (75.0-100.0); ABG STANDARD HCO3 35.7 MMOL/L. (22.0-26.0); ABG TOTAL CO2 41.5 MMOL/L (23.0-31.0); ABG pH (ARTERIAL) 7.394 UNITS (7.350-7.450)
[2023-03-22 05:57] LABS: ABG PARTIAL PRESSURE CO2 66.1 mmHg (35.0-45.0)
[2023-03-22] MEDS: BUDESONIDE 0.5 MG/2 ML INHALATION SUSPENSION INH SCH ×2 (07:46→20:23)
[2023-03-22] MEDS: methylPREDNISolone 125MG 2ML VIAL IV SCH ×2 (08:13→15:48)
[2023-03-22] MEDS: ENOXAPARIN 40MG/0.4ML SYRINGE (J1650 PER 10MG) SC SCH (08:13)
[2023-03-22] MEDS: CARVedilol 6.25 MG TAB PO SCH ×2 (09:22→20:34)
[2023-03-22] MEDS: IPRATROPIUM 0.02% SOLN 0.5MG 2.5ML NEB INH SCH ×4 (11:25→23:57)
[2023-03-22] MEDS: LEVALBUTEROL 1.25MG 0.5ML CONCENTRATE NEB INH SCH ×4 (11:26→23:57)
[2023-03-22] MEDS: ACETAMINOPHEN TAB 650MG DOSE (2X325MG) PO PRN (20:33)
[2023-03-22] MEDS ORDERED: SENNA 8.6 MG TAB (SENOKOT) PO SCH (21:00)
[2023-03-23] VITALS (24 sets, daily range): BP systolic 134–183; BP diastolic 74–93; TEMP 98.1–99.6; O2SAT 88–97
[2023-03-23] MEDS: methylPREDNISolone 125MG 2ML VIAL IV SCH ×3 (00:05→20:30)
[2023-03-23 04:43] LABS: HEMATOCRIT 41.1 % (36.0-47.0); HEMOGLOBIN 12.6 g/dl (12.0-15.5); MEAN CORPUSCULAR HEMOGLOBIN 28.3 pg (27.0-33.0); MEAN CORPUSCULAR HGB CONC 30.7 g/dl (32.0-36.5); MEAN CORPUSCULAR VOLUME 92.4 fl (80.0-96.0); PLATELET COUNT, AUTOMATED 167 10^3/uL (150-450); RED BLOOD COUNT 4.45 10^6/uL (4.00-5.40); WHITE BLOOD COUNT 11.6 10^3/uL (4.0-10.0)
[2023-03-23 05:31] LABS: BLOOD UREA NITROGEN 28 MG/DL (9-23); CALCIUM LEVEL 8.8 MG/DL (8.3-10.6); CARBON DIOXIDE LEVEL > 40.0 MMOL/L (20-31); CHLORIDE LEVEL 96 MMOL/L (98-107); CREATININE FOR GFR 0.45 MG/DL (0.55-1.30); GLOMERULAR FILTRATION RATE > 60.0 (>39); GLUCOSE, FASTING 132 MG/DL (74-106); POTASSIUM SERUM 4.2 MMOL/L (3.5-5.1); SODIUM LEVEL 143 MMOL/L (136-145)
[2023-03-23] MEDS: IPRATROPIUM 0.02% SOLN 0.5MG 2.5ML NEB INH SCH ×3 (07:19→20:05)
[2023-03-23] MEDS: LEVALBUTEROL 1.25MG 0.5ML CONCENTRATE NEB INH SCH ×3 (07:19→20:05)
[2023-03-23] MEDS: BUDESONIDE 0.5 MG/2 ML INHALATION SUSPENSION INH SCH ×2 (07:19→20:05)
[2023-03-23] MEDS: ENOXAPARIN 40MG/0.4ML SYRINGE (J1650 PER 10MG) SC SCH (08:06)
[2023-03-23] MEDS: CARVedilol 6.25 MG TAB PO SCH ×2 (08:07→20:34)
[2023-03-23] MEDS: MIRALAX *UNIT DOSE* 17GM PACKET PO SCH ×2 (14:37→20:30)
[2023-03-23] MEDS: SENNA 8.6 MG TAB (SENOKOT) PO SCH (20:31)
[2023-03-23] MEDS: ACETAMINOPHEN TAB 650MG DOSE (2X325MG) PO PRN (20:40)
[2023-03-24] VITALS (14 sets, daily range): BP systolic 135–215; BP diastolic 76–115; TEMP 97–98.7; O2SAT 90–96
[2023-03-24] MEDS: LEVALBUTEROL 1.25MG 0.5ML CONCENTRATE NEB INH SCH ×4 (00:21→20:39)
[2023-03-24] MEDS: IPRATROPIUM 0.02% SOLN 0.5MG 2.5ML NEB INH SCH ×4 (00:21→20:39)
[2023-03-24 04:33] LABS: HEMATOCRIT 42.3 % (36.0-47.0); HEMOGLOBIN 12.8 g/dl (12.0-15.5); MEAN CORPUSCULAR HEMOGLOBIN 28.3 pg (27.0-33.0); MEAN CORPUSCULAR HGB CONC 30.3 g/dl (32.0-36.5); MEAN CORPUSCULAR VOLUME 93.6 fl (80.0-96.0); PLATELET COUNT, AUTOMATED 175 10^3/uL (150-450); RED BLOOD COUNT 4.52 10^6/uL (4.00-5.40); WHITE BLOOD COUNT 10.9 10^3/uL (4.0-10.0)
[2023-03-24 05:08] LABS: BLOOD UREA NITROGEN 29 MG/DL (9-23); CALCIUM LEVEL 8.8 MG/DL (8.3-10.6); CARBON DIOXIDE LEVEL > 40.0 MMOL/L (20-31); CHLORIDE LEVEL 96 MMOL/L (98-107); CREATININE FOR GFR 0.42 MG/DL (0.55-1.30); GLOMERULAR FILTRATION RATE > 60.0 (>39); GLUCOSE, FASTING 137 MG/DL (74-106); POTASSIUM SERUM 4.1 MMOL/L (3.5-5.1); SODIUM LEVEL 141 MMOL/L (136-145)
[2023-03-24] MEDS ORDERED: FUROSEMIDE 20MG/2ML VIAL IV ONE (07:40)
[2023-03-24] MEDS: BUDESONIDE 0.5 MG/2 ML INHALATION SUSPENSION INH SCH ×2 (07:46→20:39)
[2023-03-24] MEDS: CARVedilol 6.25 MG TAB PO SCH ×2 (08:44→20:04)
[2023-03-24] MEDS: methylPREDNISolone 40MG 1ML VIAL IV SCH ×2 (08:44→20:03)
[2023-03-24] MEDS: ENOXAPARIN 40MG/0.4ML SYRINGE (J1650 PER 10MG) SC SCH (08:44)
[2023-03-24] MEDS: MIRALAX *UNIT DOSE* 17GM PACKET PO SCH ×2 (08:45→21:00)
[2023-03-24] MEDS: SENNA 8.6 MG TAB (SENOKOT) PO SCH ×2 (08:45→20:04)
[2023-03-24] MEDS: ESCITALOPRAM OXALATE 10 MG TAB (LEXAPRO) PO SCH (16:38)
[2023-03-24] MEDS: PANTOPRAZOLE 40MG TAB (PROTONIX) PO SCH (16:38)
[2023-03-24] MEDS: NICOTINE 21MG/24HR 1 EA TRANSDERMAL TD SCH (16:38)
[2023-03-24] MEDS ORDERED: PRAVASTATIN 10 MG TAB PO SCH (21:00)
[2023-03-25] VITALS (12 sets, daily range): BP systolic 136–150; BP diastolic 87–94; TEMP 97.1; O2SAT 90–97
[2023-03-25] MEDS: IPRATROPIUM 0.02% SOLN 0.5MG 2.5ML NEB INH SCH ×3 (03:00→13:27)
[2023-03-25] MEDS: LEVALBUTEROL 1.25MG 0.5ML CONCENTRATE NEB INH SCH ×3 (03:01→13:27)
[2023-03-25 04:19] LABS: HEMATOCRIT 45.3 % (36.0-47.0); HEMOGLOBIN 13.6 g/dl (12.0-15.5); MEAN CORPUSCULAR HEMOGLOBIN 28.6 pg (27.0-33.0); MEAN CORPUSCULAR VOLUME 95.2 fl (80.0-96.0); PLATELET COUNT, AUTOMATED 176 10^3/uL (150-450); RED BLOOD COUNT 4.76 10^6/uL (4.00-5.40); WHITE BLOOD COUNT 12.5 10^3/uL (4.0-10.0)
[2023-03-25 04:45] LABS: BLOOD UREA NITROGEN 30 MG/DL (9-23); CALCIUM LEVEL 8.5 MG/DL (8.3-10.6); CARBON DIOXIDE LEVEL > 40.0 MMOL/L (20-31); CHLORIDE LEVEL 96 MMOL/L (98-107); CREATININE FOR GFR 0.49 MG/DL (0.55-1.30); GLOMERULAR FILTRATION RATE > 60.0 (>39); GLUCOSE, FASTING 147 MG/DL (74-106); POTASSIUM SERUM 4.7 MMOL/L (3.5-5.1); SODIUM LEVEL 141 MMOL/L (136-145)
[2023-03-25] MEDS: BUDESONIDE 0.5 MG/2 ML INHALATION SUSPENSION INH SCH (07:14)
[2023-03-25 07:27] LABS: ABG BASE EXCESS 18.3 (-2.0-2.0); ABG O2 SATURATION 95.1 % (95.0-99.0); ABG PARTIAL PRESSURE O2 77.2 mmHg (75.0-100.0); ABG STANDARD HCO3 42.4 MMOL/L. (22.0-26.0); ABG TOTAL CO2 49.3 MMOL/L (23.0-31.0); ABG pH (ARTERIAL) 7.414 UNITS (7.350-7.450)
[2023-03-25 07:30] LABS: ABG PARTIAL PRESSURE CO2 75.1 mmHg (35.0-45.0)
[2023-03-25] MEDS: PANTOPRAZOLE 40MG TAB (PROTONIX) PO SCH (09:36)
[2023-03-25] MEDS: methylPREDNISolone 40MG 1ML VIAL IV SCH (09:36)
[2023-03-25] MEDS: SENNA 8.6 MG TAB (SENOKOT) PO SCH (09:36)
[2023-03-25] MEDS: ESCITALOPRAM OXALATE 10 MG TAB (LEXAPRO) PO SCH (09:36)
[2023-03-25] MEDS: CARVedilol 6.25 MG TAB PO SCH (09:36)
[2023-03-25] MEDS: NICOTINE 21MG/24HR 1 EA TRANSDERMAL TD SCH (09:37)
[2023-03-25] MEDS: MIRALAX *UNIT DOSE* 17GM PACKET PO SCH (09:37)
[2023-03-25] MEDS: ENOXAPARIN 40MG/0.4ML SYRINGE (J1650 PER 10MG) SC SCH (09:37)
[2023-03-25] MEDS ORDERED: ALBU8.5H INH (14:06)
[2023-03-25] MEDS ORDERED: PRED20TA PO (14:06)
[2023-03-25] MEDS ORDERED: PRED10TA2 PO (14:06)
== END 2023-03-25 16:00 | disposition home health service (06) | DRG 189 ==
LOC: M ED 22:46 → M ED INP 03-06 04:06 → M ICU 03-06 04:29 → M PCU 03-12 17:55 → M MSPAV 03-14 23:16 → M ICU 03-20 06:45
PROVIDERS: ADMIT Internal Medicine Pulmonary Disease; ATTEND Student in an Organized Health Care Education/Training Program
PROC: 05HM33Z Insertion of Infusion Device into Right Internal Jugular Vein, Percutaneous Approach (ICD-10-PCS; principal; 2023-03-18)
DX: J96.22 Acute and chronic respiratory failure with hypercapnia (principal); G93.41 Metabolic encephalopathy; J44.1 Chronic obstructive pulmonary disease with (acute) exacerbation; E87.4 Mixed disorder of acid-base balance; J96.01 Acute respiratory failure with hypoxia; I10 Essential (primary) hypertension; I49.5 Sick sinus syndrome; I25.10 Atherosclerotic heart disease of native coronary artery without angina pectoris; Z99.81 Dependence on supplemental oxygen; E78.5 Hyperlipidemia, unspecified; K21.9 Gastro-esophageal reflux disease without esophagitis; Z88.0 Allergy status to penicillin; Z88.2 Allergy status to sulfonamides; Z88.8 Allergy status to other drugs, medicaments and biological substances; Z88.5 Allergy status to narcotic agent; Z79.899 Other long term (current) drug therapy; M19.90 Unspecified osteoarthritis, unspecified site; F41.9 Anxiety disorder, unspecified; F32.A Depression, unspecified; F17.210 Nicotine dependence, cigarettes, uncomplicated; Z66 Do not resuscitate; E87.5 Hyperkalemia; I25.2 Old myocardial infarction

== ENCOUNTER 2023-06-18 06:25 | Day surgery (SDC) | payer MEDICARE ==
[~2023-06-18] VITALS: Ht 152.4 cm; Wt 50.3 kg
[~2023-06-18 06:25] MED LIST changes: +ALBU8.5H INH; +CIPR0.3S37 OS; +D3 H10002 PO; +ECOT81TA5 PO; +FLUT12AE3 INH; +OMEP40CA4 PO; +PHENYLEPHRINE 10% OPHTH SOL 5ML OS PRN; +PRED10TA2 PO; +PRED20TA PO; +STOO100C30 PO; +THERTAB52 PO
[2023-06-18] MEDS: OFLOXACIN 0.3 % (OCUFLOX) OPTH SOL 5ML OS ONE (06:47)
[2023-06-18] MEDS: PHENYLEPHRINE 2.5% OPHTH SOL 2ML OS SCH (06:47)
[2023-06-18] MEDS: LIDOCAINE 3.5 % 1ML OPHTH TOPICAL GEL OU ONE (06:48)
[2023-06-18] MEDS: CYCLOPENTOLATE 1% OPHTH SOLN 2ML BTL OS SCH (06:48)
[2023-06-18] MEDS: TROPICAMIDE 1% OPHTH SOLN 15ML OS SCH (06:48)
[2023-06-18] MEDS ORDERED: MIDAZOLAM 5MG/ML 1ML VIAL As Ordered ONE (07:32)
[2023-06-18] MEDS: LIDOCAINE 1% SDV 5ML VIAL As Ordered ONE (07:52)
[2023-06-18] MEDS: BSS IRRIG/VANCO(10MG)/TOBRA(5MG)/EPINEPH(1:1000-0.5CC)500ML BAG-ORONLY As Ordered ONE (07:52)
[2023-06-18] MEDS: CEFUROXIME 1MG/0.1ML INTRACAMERAL INJ As Ordered ONE (07:54)
[2023-06-18 08:02] VITALS: BP 167/72; TEMP 98.1; O2SAT 98
== END 2023-06-18 08:20 | disposition home or self-care (01) ==
LOC: M SDC 06:25
PROVIDERS: ATTEND Ophthalmology
DX: H25.12 Age-related nuclear cataract, left eye (principal); I25.2 Old myocardial infarction; I10 Essential (primary) hypertension; E78.5 Hyperlipidemia, unspecified; K21.9 Gastro-esophageal reflux disease without esophagitis; Z88.0 Allergy status to penicillin; Z88.2 Allergy status to sulfonamides; Z88.5 Allergy status to narcotic agent; Z87.891 Personal history of nicotine dependence; Z98.61 Coronary angioplasty status; G47.33 Obstructive sleep apnea (adult) (pediatric); F41.9 Anxiety disorder, unspecified; F32.A Depression, unspecified; Z79.899 Other long term (current) drug therapy
CPT/HCPCS: 66984; J0697; J2250; V2632

== ENCOUNTER 2023-08-06 07:19 | Day surgery (SDC) | payer MEDICARE ==
[~2023-08-06] VITALS: Ht 152.4 cm; Wt 54.0 kg
[~2023-08-06 07:19] MED LIST changes: +PHENYLEPHRINE 10% OPHTH SOL 5ML OD PRN; -PHENYLEPHRINE 10% OPHTH SOL 5ML OS PRN
[2023-08-06] MEDS ORDERED: MIDAZOLAM INJ 2MG/2ML VIAL As Ordered ONE (07:44)
[2023-08-06] MEDS: PHENYLEPHRINE 2.5% OPHTH SOL 2ML OD SCH (07:52)
[2023-08-06] MEDS: ATROPINE SULFATE 1% OPHTH SOLN 2ML BTL OD SCH (07:52)
[2023-08-06] MEDS: OFLOXACIN 0.3 % (OCUFLOX) OPTH SOL 5ML OD ONE (07:52)
[2023-08-06] MEDS: LIDOCAINE 3.5 % 1ML OPHTH TOPICAL GEL OU ONE (07:52)
[2023-08-06] MEDS: TROPICAMIDE 1% OPHTH SOLN 15ML OD SCH (07:53)
[2023-08-06] MEDS: CEFUROXIME 1MG/0.1ML INTRACAMERAL INJ As Ordered ONE (09:08)
[2023-08-06] MEDS: BSS IRRIG/VANCO(10MG)/TOBRA(5MG)/EPINEPH(1:1000-0.5CC)500ML BAG-ORONLY As Ordered ONE (09:08)
[2023-08-06] MEDS: LIDOCAINE 1% SDV 5ML VIAL As Ordered ONE (09:08)
[2023-08-06 09:30] VITALS: BP 128/62; TEMP 98.7; O2SAT 96
== END 2023-08-06 09:31 | disposition home or self-care (01) ==
LOC: M SDC 07:19
PROVIDERS: ATTEND Ophthalmology
DX: H25.11 Age-related nuclear cataract, right eye (principal); Z88.0 Allergy status to penicillin; Z88.2 Allergy status to sulfonamides; Z88.5 Allergy status to narcotic agent; I25.2 Old myocardial infarction; Z98.61 Coronary angioplasty status; E78.5 Hyperlipidemia, unspecified; I10 Essential (primary) hypertension; J44.9 Chronic obstructive pulmonary disease, unspecified; G47.33 Obstructive sleep apnea (adult) (pediatric); Z79.82 Long term (current) use of aspirin; Z79.899 Other long term (current) drug therapy; Z87.891 Personal history of nicotine dependence
CPT/HCPCS: 66984; J0697; J2250; V2632

== ENCOUNTER → 2024-04-06 | Outpatient (CLI) | payer MEDICARE ==
[~2024-04-06] MED LIST changes: -PHENYLEPHRINE 10% OPHTH SOL 5ML OD PRN
== END ==
LOC: M RAD 10:04
PROVIDERS: ATTEND Physician Assistant
DX: I71.40 Abdominal aortic aneurysm, without rupture, unspecified (principal); I65.23 Occlusion and stenosis of bilateral carotid arteries

== ENCOUNTER → 2024-07-30 | Outpatient (CLI) | payer MEDICARE | LOC: M WUC 15:26 | PROVIDERS: ATTEND Family Medicine | DX: R05.1 Acute cough (principal); I51.7 Cardiomegaly ==

== ENCOUNTER → 2025-04-19 | Outpatient (REF) | payer MEDICARE ==
[~2025-04-19] MED LIST changes: +PRAV10TA PO; -PRAV10TA4 PO
== END ==
LOC: M LAB REF 14:38
PROVIDERS: ATTEND Internal Medicine Pulmonary Disease
DX: J44.9 Chronic obstructive pulmonary disease, unspecified (principal)